=== PATIENT | female | born 1975 | race Caucasian/White ===

== ENCOUNTER 2020-04-01 10:09 | Outpatient (CLI) | payer BC, SELFPAY ==
--- NOTE | ~2020-04-01 | MR_ITS ---
EXAMINATION: MR lumbar spine wo con DATE: 04/01/2020 10:55 INDICATION: Low back pain. TECHNIQUE: Magnetic resonance imaging (MRI) of the lumbar spine was performed without intravenous con trast. Sequences included sagittal T2-weighted FSE, sagittal T2-weighted FS FSE, sagittal T1-weighted FSE, and axial T2-weighted FSE. COMPARISON: None FINDINGS: Bone alignment is normal. Vertebral body heights are normal. There is mildly decreased disc height at L4-L5. The distal spinal cord signal intensity is normal. The conus medullaris is at L1. T he following disc levels are specifically discussed: L1-L2: The disc does not extend beyond the endplate margin. There is mild bilateral facet joint osteo arthritis. There is no neural foraminal stenosis. There is no central canal stenosis. L2-L3: The disc does not extend beyond the endplate margin. There is mild bilateral facet joint osteo arthritis. There is no neural foraminal stenosis. There is no central canal stenosis. L3-L4: The disc is bulging. There is mild bilateral facet joint osteoarthritis. There is mild bilater al neural foraminal stenosis. There is mild central canal stenosis. L4-L5: The disc is bulging and has an annular fissure. There is severe bilateral facet joint osteoart hritis. There is moderate bilateral neural foraminal stenosis. There is moderate central canal stenos is. L5-S1: The disc is bulging. There is moderate bilateral facet joint osteoarthritis. There is mild germain ateral neural foraminal stenosis. There is mild central canal stenosis. IMPRESSION: 1. Moderate lower lumbar spondylosis. Reviewed, dictated and finalized at location A.
== END 2020-04-01 10:10 | disposition home or self-care (01) ==
PROVIDERS: Visit Provider Nurse Practitioner Family
DX: M54.12 Radiculopathy, cervical region (principal); M47.896 Other spondylosis, lumbar region
CPT/HCPCS: 72148

== ENCOUNTER 2020-08-25 13:49 | Outpatient (CLI) | payer BC, SELFPAY ==
--- NOTE | ~2020-08-25 | XR_ITS ---
XR lumbar spine 2-3V 08/25/2020 14:06 Indication: Lumbar fusion. Procedure: 2 views lumbar spine Comparison: 06/18/2014 Findings: Status post fusion of L4-5. Pedicle screws appear intact. There is a prosthetic disc device in expected position. No acute fracture or traumatic malalignment. Normal lumbar alignment. There is bone graft material lateral to L4 and L5. Impression: 1: Anatomic alignment of the lumbar spine status post spinal fusion. Fusion hardware appears to be in tact. Reviewed, dictated and finalized at location B. Impression: 1: Anatomic alignment of the lumbar spine status post spinal fusion. Fusion gregorio dware appears to be intact.
== END 2020-08-25 13:50 | disposition home or self-care (01) ==
PROVIDERS: Visit Provider Neurological Surgery
DX: Z98.1 Arthrodesis status (principal)
CPT/HCPCS: 72100

== ENCOUNTER 2020-09-26 12:02 | Outpatient (CLI) | payer BC, SELFPAY ==
--- NOTE | ~2020-09-26 | XR_ITS ---
XR lumbar spine 2-3V DATE: 09/26/2020 12:26 INDICATION: Spondylolisthesis. Prior surgery. TECHNIQUE: AP, lateral, coned lateral lumbosacral views COMPARISON: 08/25/2020 lumbar spine FINDINGS: Status post L4 laminectomy and posterior and interbody spinal fusion at L4-5. The hardware appears intact without interval fracture or displacement. No fracture or bone destruction is detected. Lumbar lordosis interspaces appear well preserved. There is mild degenerative spurring of the lower thoracic spine. The sacroiliac joints are intact. IMPRESSION: Posterior and interbody spinal fusion at L4-5 No significant change since 08/25/2020 Reviewed, dictated and finalized at location B. ENT PRODUCER
== END 2020-09-26 12:03 | disposition home or self-care (01) ==
LOC: ANHIMG 12:08
PROVIDERS: PCP Family Medicine; Visit Provider Neurological Surgery
DX: M43.16 Spondylolisthesis, lumbar region (principal); Z98.1 Arthrodesis status
CPT/HCPCS: 72100

== ENCOUNTER 2022-06-17 13:53 | Emergency (ER) | payer BC, SELFPAY ==
[2022-06-17] VITALS (11 sets, daily range): BP systolic 128–164; BP diastolic 64–104; PULSE 69–97; RESP 12–20; TEMP 36.4; O2SAT 95–100
--- NOTE | ~2022-06-17 | XR_ITS ---
EXAMINATION: XR chest 2V 06/17/2022 14:55 INDICATION: Cough, fever. Hypertension. PROCEDURE: 2 view chest COMPARISON: 07/13/2014 FINDINGS: The lungs are clear. The cardiomediastinal silhouette is within normal limits. There are no pleural effusions. There is no pneumothorax suspected. IMPRESSION: 1: NO ACUTE CARDIOPULMONARY DISEASE. Reviewed, dictated and finalized at location A.
--- NOTE | 2022-06-17 13:56 | ECG_ITS ---
Measurements Intervals [place] Rate: 99 P: 51 DC: 136 QRS: 30 QRSD: 98 T: 41 QT: 343 QTc: 442 Interpretive Statements SINUS RHYTHM NORMAL EKG NO PREVIOUS ECG AVAILABLE FOR COMPARISON Electronically Signed On 06-17-2022 18:34:36 CDT by Maria Esther Alexander M.D.
--- NOTE | 2022-06-17 14:05 | ED.GENADULT ---
HPI - General Adult General Chief complaint: Chest Pain Stated complaint: chest pain Time Seen by Provider: 06/17/22 14:01 History of Present Illness HPI narrative: This is a 46-year-old female presenting ED with a chief complaint of chest pain. The patient has been sick since last Tuesday. Her symptoms include fatigue, muscle aches, cough. She has recently developed chest discomfort across the top of her chest. She describes as achy pain that is 8/10 intensity and getting worse. She has never experienced pain like this before. It is worse with deep breaths. Deep breaths cause coughing. It is associated with cough, intermittent fever chills, and shortness of breath. Patient denies nausea, vomiting, diarrhea, urinary symptoms. Patient called her primary care physician on Tuesday and was prescribed a course of prednisone and doxycycline. She has been taking as directed and has not improved. Patient has no history of blood clots, recent surgeries, history of cancer or lower extremity edema. Patient's vaccinations COVID-19. She has no sick contacts at home. Related Data Home Medications Medication Instructions Recorded Confirmed hydrochlorothiazide 25 mg tablet mg 06/17/22 hydroxyzine HCl 50 mg tablet mg 06/17/22 lamotrigine 100 mg tablet mg 06/17/22 levothyroxine 50 mcg tablet mcg 06/17/22 (Euthyrox) lithium carbonate 300 mg mg PO 06/17/22 tablet,extended release losartan 100 mg tablet mg 06/17/22 meloxicam 15 mg tablet mg 06/17/22 pantoprazole 40 mg tablet,delayed mg PO 06/17/22 release phentermine 37.5 mg tablet mg 06/17/22 prednisone 20 mg tablet mg 06/17/22 Allergies Allergy/AdvReac Type Severity Reaction Status Date / Time Sulfa (Sulfonamide Allergy Mild Rash Verified 06/17/22 14:08 Antibiotics) morphine Allergy Unknown Unknown Verified 06/17/22 14:08 shellfish derived Allergy Unknown Unknown Verified 06/17/22 14:08 SHELLFISH Allergy Mild Unknown Uncoded 06/17/22 14:08 Shrimp Allergy Mild Unknown Uncoded 06/17/22 14:08 Review of Systems Review of Systems: CONSTITUTIONAL: Denies night sweats. EYES: No eye pain ENT: Denies rhinorrhea CARDIOVASCULAR: Denies palpitations RESPIRATORY: Denies hemoptysis GASTROINTESTINAL: Denies hematemesis GENITOURINARY: Denies hematuria. SKIN: Denies rash MUSCULOSKELETAL: Denies myalgia. NEUROLOGIC: denies weakness PSYCHIATRIC: Denies delusions [facility] Past Medical History Medical History (Updated 06/17/22 @ 16:39 by Baltazar Oseguera MD) Arthritis Diabetes Fusion of lumbar spine Hypertension Hypothyroid Ulnar nerve impingement Surgical History Surgical History History of carpal tunnel release Family History Family History Mother Family history of elevated blood lipids Father Family history of elevated blood lipids Social History Social History Smoking status: Heavy tobacco smoker Alcohol intake: never Exam Narrative: APPEARANCE: No apparent distress. Head atraumatic. EYES: PERRLA/EOMI, NOSE: Normal no drainage NECK: Supple, Trachea midline RESPIRATORY: CTAB, No increased work of breathing. patient is speaking in full sentences. No wheezing or rhonchi. CARDIOVASCULAR: S1S2 appreciated ABDOMINAL: Soft, nontender, nondistended, MUSCULOSKELETAl: No obvious deformities NEURO: Alert. Moving 4/4 extremities SKIN:: Warm, dry. Normal color PSYCHIATRIC: Normal affect Course Vital Signs Vital signs: Vital Signs Temperature 97.6 F 06/17/22 13:57 Pulse Rate 97 06/17/22 13:57 Respiratory Rate 16 06/17/22 13:57 Blood Pressure 164/104 H 06/17/22 13:57 Pulse Oximetry 100 06/17/22 13:57 Oxygen Delivery Room Air 06/17/22 13:57 Temperature 97.6 F 06/17/22 13:57 Pulse Rate 77 06/17/22 16:15 Respiratory Rate 16 06/17/22 16:15 Blood
[2022-06-17 14:08] LABS: Basophils Absolute Auto 0.1 K/mm3 (0.0-0.1); Basophils Percent Auto 0.8 % (0.2-1.2); Eosinophils Absolute Auto 0.2 K/mm3 (0-0.3); Eosinophils Percent Auto 2.2 % (0-4.4); Hematocrit 41.4 % (37.0-47.0); Hemoglobin 13.8 g/dL (12.0-15.0); Immature Granulocyte Absolute 0.07 K/mm3 (0.00-0.031); Lymphocytes Absolute Auto 1.76 K/mm3 (0.9-3.2); Lymphocytes Percent Auto 23.9 % (18.3-44.2); Mean Corpuscular HGB Conc 33.3 g/dl (32-36); Mean Corpuscular Hemoglobin 31.8 pg (26-34); Mean Corpuscular Volume 95.4 fl (80-100); Mean Platelet Volume 9.3 fl (7.4-10.4); Monocytes Absolute Auto 0.2 K/mm3 (0.1-0.6); Monocytes Percent Auto 2.2 % (2.6-8.5); Neutrophils Absolute Auto 5.1 K/mm3 (1.3-6.7); Neutrophils Percent Auto 69.9 % (45.5-73.1); Platelet Count Result 250 k/mm3 (150-375); Red Blood Count 4.34 M/mm3 (4.2-5.4); White Blood Count 7.4 K/mm3 (4.5-10.0)
[2022-06-17] MEDS: guaiFENesin/DEXTROMETHORPHAN 10 ML UDC PO (14:43)
[2022-06-17 15:20] LABS: SARS-CoV-2 RNA PCR Negative
[2022-06-17 16:18] LABS: Alanine Aminotransferase 32 U/L (6-35); Alkaline Phosphatase 66 U/L (38-126); Anion Gap 11 mmol/L (8-16); Aspartate Amino Transferase 19 U/L (14-36); Bilirubin,Total 0.2 mg/dL (0.2-1.3); Blood Urea Nitrogen 20 mg/dL (7-17); Calcium 8.8 mg/dL (8.4-10.2); Carbon Dioxide 19 mmol/L (22-30); Chloride 107 mmol/L (98-107); Estimated CRCL calculation 81 ml/min; Estimated Glomerular Filt Rate > 60; Glucose 185 mg/dL (65-110); Potassium 3.9 mmol/L (3.4-5.0); Sodium 137 mmol/L (137-145)
[2022-06-17 16:29] LABS: Troponin I < 0.012 ng/mL (0.000-0.034)
[2022-06-17] MEDS: KETOROLAC 15 MG/ML VIAL (*BKC) IV PUSH (16:37)
== END 2022-06-17 16:53 | disposition home or self-care (01) ==
PROVIDERS: Emergency Provider Emergency Medicine; PCP Family Medicine
DX: J20.9 Acute bronchitis, unspecified (principal); Z20.822 Contact with and (suspected) exposure to COVID-19; M19.90 Unspecified osteoarthritis, unspecified site; E11.9 Type 2 diabetes mellitus without complications; I10 Essential (primary) hypertension; E03.9 Hypothyroidism, unspecified
CPT/HCPCS: 36415; 71046; 80053; 84484; 85025; 93005; 96374; 99284; A9270; C9803; J1885; U0003; U0005

== ENCOUNTER 2022-06-29 14:13 | Outpatient (CLI) | payer BC, SELFPAY ==
--- NOTE | ~2022-06-29 | CT_ITS ---
EXAMINATION: CT diagnostic chest wo con DATE: 06/29/2022 14:43 INDICATION: Cough TECHNIQUE: Computed tomography (CT) of the chest was performed without intravenous contrast. The dose -length product (DLP) was 374.77 mGy-cm. Automated exposure control and iterative reconstruction tech nique were employed. COMPARISON: None FINDINGS: The lungs are free of acute opacities. No pleural effusion or pneumothorax. No pathological ly enlarged thoracic lymph nodes are identified. The heart size is normal. There is moderate thoracic spondylosis. IMPRESSION: 1. No CT correlate for the patient's symptoms. Reviewed, dictated and finalized at location B.
== END 2022-06-29 14:14 | disposition home or self-care (01) ==
LOC: ANHIMG 14:15
PROVIDERS: PCP Family Medicine; Visit Provider Family Medicine
DX: R05.9 Cough, unspecified (principal)
CPT/HCPCS: 71250

== ENCOUNTER 2022-10-03 10:54 | Emergency (ER) | payer BC, MEDICAID, SELFPAY ==
[2022-10-03 11:55] VITALS: BP 133/76; PULSE 86; RESP 18; TEMP 36.8; O2SAT 99
--- NOTE | 2022-10-03 12:35 | ED.EYEPROB ---
HPI - Eye Problem General Chief complaint: Eye Problems Stated complaint: Right Eye Irritation Time Seen by Provider: 10/03/22 12:36 Source: patient Mode of arrival: ambulatory Limitations: no limitations History of Present Illness HPI Narrative: 47 year old female presented for complaint of right eye irritation for about 2 days. She states at the onset it felt painful like something was in her eye, however she denies any foreign body. She endorses it has been itchy, irritated, and draining. She endorses crust to the eye this morning. She has a history of pinkeye and states it feels similar. She denies vision changes, photophobia, headaches or dizziness. Denies sick contacts. MD chief complaint: eye pain Related Data Home Medications Medication Instructions Recorded Confirmed hydrochlorothiazide 25 mg tablet mg 06/17/22 hydroxyzine HCl 50 mg tablet mg 06/17/22 lamotrigine 100 mg tablet mg 06/17/22 levothyroxine 50 mcg tablet mcg 06/17/22 (Euthyrox) lithium carbonate 300 mg mg PO 06/17/22 tablet,extended release losartan 100 mg tablet mg 06/17/22 meloxicam 15 mg tablet mg 06/17/22 pantoprazole 40 mg tablet,delayed mg PO 06/17/22 release phentermine 37.5 mg tablet mg 06/17/22 prednisone 20 mg tablet mg 06/17/22 Allergies Allergy/AdvReac Type Severity Reaction Status Date / Time Sulfa (Sulfonamide Allergy Mild Rash Verified 10/03/22 12:09 Antibiotics) morphine Allergy Unknown Unknown Verified 10/03/22 12:09 shellfish derived Allergy Unknown Unknown Verified 10/03/22 12:09 SHELLFISH Allergy Mild Unknown Uncoded 10/03/22 12:09 Shrimp Allergy Mild Unknown Uncoded 10/03/22 12:09 Review of Systems Review of Systems: CONSTITUTIONAL: Denies body aches, fever, chills EYES:Endorses swelling, redness and pain to right eye ENT: Denies rhinorrhea, congestion, sore throat, or otalgia. CARDIOVASCULAR: Denies chest pain, palpitations RESPIRATORY: Denies cough or dyspnea. GASTROINTESTINAL: Denies abdominal pain, nausea, vomiting, or diarrhea. SKIN: Denies rash, itching, or wounds. MUSCULOSKELETAL: Denies back pain, joint pain, or myalgia. NEUROLOGIC: Denies headache, numbness, tingling, or weakness. All systems reviewed & are unremarkable except as noted in HPI and below PMFSH Past Medical History Medical History Arthritis Diabetes Fusion of lumbar spine Hypertension Hypothyroid Ulnar nerve impingement Surgical History Surgical History History of carpal tunnel release Family History Family History Mother Family history of elevated blood lipids Father Family history of elevated blood lipids Social History Social History Smoking status: Heavy tobacco smoker Alcohol intake: never Comments At time of signature, I have reviewed and agree with nursing past medical, surgical, social and family history unless otherwise noted. Please see nursing chart for further information. There is no relevant family history pertinent to the presenting complaint Exam Narrative: GENERAL: Well-appearing HEAD: Normocephalic, atraumatic. EYES: right conjunctival injection, mild eye lid swelling and clear drainage. PERRLA EOMI. Lid eversion showed no FB. ENT: Mucous membranes pink and moist. No rhinorrhea. TMs normal bilaterally. Throat normal. Uvula midline. CHEST: Clear to auscultation. HEART: Regular rate and rhythm. ABDOMEN: Soft, nontender, nondistended SKIN: Warm, dry, no rash. Normal skin turgor. NEURO: No focal deficits. Alert and oriented x3 Course Course Emergency Course: Patient is aware of diagnosis, understands and agrees to treatment plan. Anticipatory guidance given. Patient agrees to follow-up as directed and is aware of reasons to seek care at the
== END 2022-10-03 12:50 | disposition home or self-care (01) ==
PROVIDERS: Emergency Provider Nurse Practitioner Family; PCP Family Medicine
DX: H10.9 Unspecified conjunctivitis (principal); F17.290 Nicotine dependence, other tobacco product, uncomplicated; M19.90 Unspecified osteoarthritis, unspecified site; E11.9 Type 2 diabetes mellitus without complications; I10 Essential (primary) hypertension; E03.9 Hypothyroidism, unspecified
CPT/HCPCS: 99213; A9270; G0463

== ENCOUNTER 2024-06-18 10:35 | Outpatient (CLI) | payer BC, MEDICAID, SELFPAY ==
[2024-06-19 21:52] LABS: FSH 91.6 mIU/mL
[2024-06-26 05:14] LABS: Estradiol, Ultrasensitive 6 pg/mL
== END 2024-06-18 10:36 | disposition home or self-care (01) ==
LOC: ANHLAB 10:37
PROVIDERS: Visit Provider Student in an Organized Health Care Education/Training Program
DX: N95.1 Menopausal and female climacteric states (principal)
CPT/HCPCS: 36415; 82670; 83001; 84443

== ENCOUNTER 2024-09-14 11:41 | Emergency (ER) | payer BC, SELFPAY ==
--- NOTE | ~2024-09-14 | CT_ITS ---
EXAMINATION: CT lumbar spine wo con DATE: 09/14/2024 13:46 INDICATION: Low back pain. TECHNIQUE: Computed tomography (CT) of the lumbar spine was performed without intravenous contrast. A utomated exposure control and iterative reconstruction technique were employed. The dose-length produ ct was 771.46 mGy-cm. COMPARISON: Lumbar spine radiographs 09/26/2020, MRI 04/01/2020 FINDINGS: There is 7 degrees levocurvature of lumbar spine. There are changes of anterior and posteri or fusion procedures at L4-L5 with interbody device and pedicle screws. Vertebral body heights are no rmal. There is mildly decreased disc height at L3-L4. The following disc levels are specifically disc ussed: L1-L2: The disc does not extend beyond the endplate margin. There is moderate right and severe left f acet joint osteoarthritis. There is no neural foraminal stenosis. There is no central canal stenosis. L2-L3: The disc is bulging. There is mild bilateral facet joint osteoarthritis. There is mild bilater al neural foraminal stenosis. There is mild central canal stenosis. L3-L4: The disc is bulging. There is moderate bilateral facet joint osteoarthritis. There is mild rig ht and moderate left neural foraminal stenosis. There is moderate central canal stenosis. L4-L5: There is moderate bilateral facet joint hypertrophy. There is mild bilateral neural foraminal stenosis. There is no central canal stenosis. There is posterior decompression. L5-S1: The disc is bulging. There is severe bilateral facet joint osteoarthritis. There is mild bilat eral neural foraminal stenosis. There is mild central canal stenosis. IMPRESSION: 1. Moderate left neural foraminal stenosis at L3-L4. Otherwise mild lumbar spondylosis. 2. Anterior and posterior fusion procedures at L4-L5. Reviewed, dictated and finalized at location A. GER PRIVATE IMPRESSION: 1. Moderate left neural foraminal stenosis at L3-L4. Otherwise mild lumbar spon dylosis. 2. Anterior and posterior fusion procedures at L4-L5.
[2024-09-14 11:50] VITALS: BP 132/93; PULSE 81; RESP 20; TEMP 36.2; O2SAT 95
--- NOTE | 2024-09-14 13:12 | ED_ITS ---
HPI - Back Pain/Injury General Chief Complaint: Back Pain/Injury Stated Complaint: back pain Time Seen by Provider: 09/14/24 12:53 Source: patient Mode of arrival: ambulatory Limitations: no limitations History of Present Illness HPI Narrative: Patient with history of lumbar fusion 4 years ago presenting for low back pain. Had a adjustment with a chiropractor 2 months ago and since then has been having some low back pain which radiates into both of her legs occasionally. She says she gets shooting pain in the back of her legs into her feet. No paresthesias however. No difficulty urinating or incontinence. No changes in bowel habits. No saddle anesthesia Related Data Home Medications Medication Instructions Recorded Confirmed hydrochlorothiazide 25 mg tablet mg 06/17/22 07/30/24 levothyroxine 50 mcg tablet mcg 06/17/22 07/30/24 (Euthyrox) losartan 100 mg tablet mg 06/17/22 07/30/24 meloxicam 15 mg tablet mg 06/17/22 07/30/24 lamotrigine 100 mg tablet 150 mg PO 06/18/24 07/30/24 lithium carbonate 300 mg mg PO BID 06/18/24 07/30/24 tablet,extended release prednisolone acetate 1 % eye drp EACH EYE 06/18/24 07/30/24 drops,suspension Allergies Allergy/AdvReac Type Severity Reaction Status Date / Time Sulfa (Sulfonamide Allergy Mild Rash Verified 09/14/24 11:57 Antibiotics) morphine Allergy Unknown Unknown Verified 09/14/24 11:57 SHELLFISH Allergy Mild Unknown Uncoded 07/30/24 14:49 Shrimp Allergy Mild Unknown Uncoded 07/30/24 14:49 Review of Systems Review of Systems: All systems reviewed & are unremarkable except as noted in HPI and below PMFSH Past Medical History Medical History Arthritis Diabetes Fusion of lumbar spine Hypertension Hypothyroid Ulnar nerve impingement Surgical History Surgical History History of carpal tunnel release History of hysterectomy Family History Family History Mother Family history of elevated blood lipids Father Family history of elevated blood lipids Social History Social History Smoking status: Heavy tobacco smoker Alcohol intake: never Substance use: never Do You Feel Safe in your Home?: Yes Lack of Transportation: No Lack of Food: Never True Current Housing: I Have Housing Concerned About Future Housing: No Difficulty Paying Gas/Electric Bills: No Currently Unemployed: No Occupation/Education: occupation Gender identity (if verbalized by the patient): Female Exam Narrative: Constitutional: Generally well appearing, no acute distress Head: Atraumatic, no deformities. Eyes: Pupils equal, round, and reactive to light. Neck: Supple, no tracheal deviation, no JVD. ENMT: Mucous membranes moist Cardiovascular: S1, S2 auscultated. No murmurs, rubs, or gallops. No S3/S4. Normal Distal pulses. No peripheral edema. Respiratory: Lung sounds equal. No wheezes, rales, or rhonchi. Gastrointestinal: Abdomen was soft and non-tender. Non-distended. No rebound or guarding. Genitourinary: Deferred Musculoskeletal: Normal muscle tone and bulk. No obvious deformities or t enderness over extremities. Mild tenderness in the mid lumbar spine region with no step-off deformity. Skin: No rashes. Neurological: Strength 5/5 in extremities. Cranial nerves I-XII grossly intact. Distal sensation intact. Mental Status: Awake, alert and oriented x3. Follows commands Course Vital Signs Vital signs: Vital Signs Temperature 36.2 C L 09/14/24 11:50 Pulse Rate 81 09/14/24 11:50 Respiratory Rate 20 09/14/24 11:50 Blood Pressure 132/93 H 09/14/24 11:50 Pulse Oximetry 95 09/14/24 11:50 Oxygen Delivery Room Air 09/14/24 11:50 Temperature 36.2 C L 09/14/24 11:50 Pulse Rate 81 09/14/24 11:50 Respiratory Rate 20 09/14/24 11:50 Blood Pressure 132/93 H 09/14/24 11:50 Pulse Oximetry 95 09/14/24 11:50 Oxygen Delivery Room Air 09/14/24 11:50 MDM - Back Pain/Injury MDM Narrative Medical decision making narrative: Well-appearing 48-year-old here for low back pain. Ongoing for several months now. Was the area so decided to be evaluated because she [place] and her surgeon without getting further imaging done. Exam shows neurologically intact. No red flag findings for acute spinal cord impingement. Obtaining CT lumbar spine to further evaluate and given pain medicine Imaging shows chronic degeneration and also some neural foraminal stenosis likely causing her pain. Still neurovascularly intact. Discussed follow-up with her neurosurgeon. She will do so. Given naproxen prescription. Pt feeling improved and would like to go home at this point. Return precautions were given to the patient include any new or worsening symptoms or development of and not limited to any chest pain, shortness of breath, lightheadedness, abdominal pain, fevers, chills. Patient understands and agrees. They are to follow-up with her PCP. All questions were answered. I reviewed the patient's vital signs, history, allergies, and labs and imaging workup. Lab Data Labs: Lab Results 09/14/24 Range/Units 13:58 Urine Test Negative Discharge Plan Discharge Clinical Impression: Lumbar radiculopathy Patient Disposition: Home, Self-Care Condition: Stable Instructions: Antibiotic Form, Lumbar Radiculopathy (ED) Prescriptions: New naproxen 500 mg tablet 500 mg PO BID PRN (Reason: pain) Qty: 20 0RF No Action prednisolone acetate 1 % drops,suspension EACH EYE estradiol 1 mg tablet 1 mg PO DAILY Qty: 90 3RF meloxicam 15 mg tablet levothyroxine [Euthyrox] 50 mcg tablet hydrochlorothiazide 25 mg tablet losartan 100 mg tablet lamotrigine 100 mg tablet 150 mg PO lithium carbonate 300 mg tablet extended release PO BID Follow-up/Referrals: Pratibha Nnuez DO [Physician] - Time of Disposition: 14:38
[2024-09-14] MEDS: KETOROLAC 30 MG/ML VIAL (*BKC) IM (13:26)
[2024-09-14] MEDS: HYDROcodone/acetaminophen (*CRX) 5-325 MG TABLET 1 TAB PO (13:26)
[2024-09-14 14:13] LABS: Pregnancy On Board Control Positive; Urine Pregnancy Test Negative
[2024-09-14 14:49] VITALS: BP 129/76; PULSE 70; RESP 20; TEMP 35.9; O2SAT 98
== END 2024-09-14 14:51 | disposition home or self-care (01) ==
PROVIDERS: Emergency Provider Emergency Medicine
DX: M54.16 Radiculopathy, lumbar region (principal); E11.9 Type 2 diabetes mellitus without complications; I10 Essential (primary) hypertension; E03.9 Hypothyroidism, unspecified; F17.200 Nicotine dependence, unspecified, uncomplicated
CPT/HCPCS: 72131; 81025; 96372; 99283; A9270; J1885

== ENCOUNTER 2024-11-05 15:38 | Outpatient (CLI) | payer BC, SELFPAY ==
--- NOTE | ~2024-11-05 | MR_ITS ---
MRI of the lumbar spine Clinical History: Back pain Technique: Axial T2-weighted images, and sagittal T1-weighted, T2-weighted, and STIR images were acqu ired. Findings: No acute fracture or subluxation identified. There is posterior and interbody fusion from L 4 to L5, with bilateral rods and transpedicular screws present, as well as interbody fusion device. T here is been prior laminectomy at L4 and L5. No suspicious bone marrow signal abnormality seen. At L1-L2, there is no disc bulge or herniation. There is moderate to advanced facet hypertrophy. No s nito canal stenosis or neural foraminal narrowing. At L2-L3, there is no disc bulge or herniation. There is advanced facet hypertrophy. No spinal canal stenosis or neural foraminal narrowing. L3-L4, there is mild to moderate degenerative distended. Disc bulge and severe facet arthropathy resu lt in severe spinal canal stenosis/thecal sac compression. There is minimal left neural foraminal henri rowing. Right neural foramen preserved. At L4-L5, there is no disc bulge or herniation. No spinal canal stenosis or definite neural foraminal narrowing. At L5-S1, there is advanced facet arthropathy but, no disc bulge or herniation. No spinal canal steno sis. Probable mild to moderate bilateral neural foraminal narrowing, right worse than left. Paravertebral soft tissues are unremarkable aside from postoperative change. Impression: Advanced degenerative spondylosis at L3-L4, with severe spinal canal stenosis/thecal sac compression, as detailed above. Postoperative change from L4-L5, as above. Reviewed, dictated and finalized at location . OL PSYCHOLOGIST Impression: Advanced degenerative spondylosis at L3-L4, with severe spinal canal stenosis/t hecal sac compression, as detailed above. Postoperative change from L4-L5, as above.
== END 2024-11-05 15:39 | disposition home or self-care (01) ==
DX: M47.816 Spondylosis without myelopathy or radiculopathy, lumbar region (principal); M43.26 Fusion of spine, lumbar region
CPT/HCPCS: 72148

== ENCOUNTER 2025-01-26 14:29 | Emergency (ER) | payer BC, SELFPAY ==
--- NOTE | ~2025-01-26 | XR_ITS ---
XR chest 2V DATE: 01/26/2025 15:33 INDICATION: Chest pain TECHNIQUE: 2 views COMPARISON: 06/17/2022 2 view chest FINDINGS: Relatively low lung volumes with mild atelectasis at the lung bases. Heart size appears normal. No hilar or mediastinal enlargement. No pleural effusion or pneumothorax o r pulmonary vascular congestion. Bilateral lumbar spine hardware. IMPRESSION: Relatively low lung volumes compared to 06/17/2022 with mild bibasilar atelectasis Reviewed, dictated and finalized at location A. IMPRESSION: Relatively low lung volumes compared to 06/17/2022 with mild bibasil ar atelectasis
--- OUTSIDE RECORDS SUMMARY | 2025-01-26 14:30 | XMS_ITS | Clinical Summary ---
Author Organization [employer] [id number] [facility] Address [address] [place] [address] Care Team Providers Care Dental Specialist Name Role Phone Mariluz Alva MD Primary Care Provider + Allergies Active Allergy Reactions Criticality Noted Date Comments Fish Derived Hives,Other (See Comments) High 08/01/2020 Stomach problems and tongue felt funny Morphine Hives,Itching High 07/02/2020 HR and BP was very low, possibly due to morphine Shellfish Containing Products Swelling High 07/02/2020 Shellfish Derived Swelling Low 08/02/2022 Sulfa (Sulfonamide Antibiotics) Itching High 08/01/2020 Eyes swell shut; BUT Sulfa can take orally, just not as eye drops. 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 Acti ve tiZANidine (ZANAFLEX) 4 mg Tablet 07/22/20 22 Active pantoprazole (PROTONIX) 40 mg Tablet, Delayed Release (E.C.) TAKE 1 TABLET BY MOUTH ONCE DAILY 30 MINUTES BEFORE BREAKFAST FOR ACID REFLUX 07/08/20 22 Active meloxicam (MOBIC) 15 mg tablet meloxicam 15 mg tablet Active LOSARTAN-HYDR OCHLOROTHIAZI DE ORAL Active lithium carbonate (LITHOBID) 300 mg Extended Release tablet 06/21/20 22 Active lamoTRIgine (LaMICtal) 100 mg tablet lamotrigine 100 mg tablet TAKE 1 TABLET BY MOUTH ONCE DAILY Active hydrOXYzine HCL (ATARAX) 50 mg tablet hydroxyzine HCl 50 mg tablet Active hydroCHLOROth iazide 25 mg tablet hydrochlorothiazide 25 mg tablet Active famotidine (PEPCID) 40 mg tablet famotidine 40 mg tablet Active doxycycline hyclate (VIBRAMYCIN) 100 mg tablet 06/14/20 Active Active Problems Problem Noted Date Diagnosed Date Chronic midline low back pain with left-sided sc iatica 08/02/2022 Pain in thoracic spine 07/29/2021 S/P lumbar fusion 08/26/2020 S/P lumbar spinal fusion 08/07/2020 Drug-induced hypotension 08/07/2020 Acquired hypothyroidism 08/07/2020 Spondylolisthesis at L4-L5 level 07/02/2020 Neurogenic claudication due to lumbar spinal chad nosis 07/02/2020 Family History Relation Name Status Comments Father Alive Mother Alive Social History Tobacco Use Types Packs/Day Years Used Date Smoking Tobacco: Former Cigarettes 1.5 20 0 07/21/2000 - 07/21/2020 Smokeless Tobacco: Never Tobacco Cessation:Counseling Given: No Alcohol Use Standard Drinks/Week Comments Not Currently 0 (1 standard drink = 0.6 oz pur e alcohol) Comments No Sex and Gender Information Value Date Recorded Sex Assigned at Not on file Legal Sex Female 2:22 PM CDT Gender Identity Not on file Sexual Orientation Not on file Last Filed Vital Signs Vital Sign Reading Time Taken Comments Blood Pressure 122/61 08/08/2020 2:00 PM CDT Pulse 75 08/02/2022 9:34 AM CDT Temperature 36.4 C (97.6 F) 08/26/2020 9:26 AM CDT Respiratory Rate 16 08/08/2020 7:46 AM CDT Oxygen Saturation 98% 08/02/2022 9:34 AM CDT Inhaled Oxygen Concentration - - Weight 100.9 kg (222 lb 6.4 oz) 08/02/2022 9:34 AM CDT Height 162.6 cm (5' 4 ) 09/30/2020 11:3 7 AM [employer] Body Mass Index 38.17 09/30/2020 11:37 AM [employer] Plan of Treatment Upcoming Encounters Date Type Department Care Team (Late st Contact Info) Description 02/18/2025 2:00 PM CDT Office Visit [facility] Neurosurgery [address] [facility] [address] [place] [address] Vidal Carranza MD [address] [facility] [address] [place] [id number] Health Maintenance Due Date Last Done Comments HEPATITIS B VACCINES (1 of 3 - 19+ 3-dose series) 1995 PAP SMEAR 2006 BREAST CANCER SCREENING 2016 COLORECTAL SCREENING 2021 Colorectal Cancer Screening 2021 FIT-DNA Q 3 years 2021 FIT/FOBT Q 1 year 2021 Flex Sig/CT Colonography Q 5 years 2021 INFLUENZA VACCINE (#1) 2024 , 08/21/2015, 09/05/2013 Preventative Visit- Commercial 11/07/2024 DTAP/TDAP/TD VACCINES (2 - T d or Tdap) 01/27/2027 01/27/2017 Medical Devices Implanted Type Area Ssrs Developer Device Identifier Shelf Expiration Date Model / Serial / Lot Rosalio Cdh Solera Ccm [id number] Capped [id number] - Sna Implanted:Qty: 1 on 08/06/2020 by Soy Pierce MD at [facility] Rosalio N/A: Spine Lumbar [employer] [id number] / NA / NA Description:load # [id number] date 08/01/2020 Rosalio Cdh Solera Ccm [id number] Capped [id number] - Sna Implanted:Qty: 1 on 08/06/2020 by Soy Pierce MD at [facility] Rosalio N/A: Spine Lumbar [employer] [id number] / NA / NA Description:load #[id number] date 08/01/2020 BR[employer]IE-REQ#[id number] Set Screw Solera Perc 4.75mm [id number] - Sna Implanted:Qty: 4 on 08/06/2020 by Soy Pierce MD at [facility] Screw N/A: Spine Lumbar [employer] [id number] / NA / NA Description:load # [id number] date 08/01/2020 Screw Solera Kit Ma 6.5x35mm 4.75 Ext Tab [id number] - Sna Implanted:Qty: 2 on 08/06/2020 by Soy Pierce MD at [facility] N/A: Spine Lumbar [employer] [id number] / NA / NA Description:load # [id number] date 08/01/2020 Screw Solera Kit Ma 5.5x40mm 4.75 Ext Tab [id number] - Sna Implanted:Qty: 1 on 08/06/2020 by Soy Pierce MD at [facility] N/A: Spine Lumbar [employer] [id number] / NA / NA Description:load # [id number] date 08/01/2020 Screw Solera Kit Ma 5.5x35mm 4.75 Ext Tab [id number] - Sna Implanted:Qty: 1 on 08/06/2020 by Soy Pierce MD at [facility] N/A: Spine Lumbar [employer] [id number] / NA / NA Description:load # [id number] date 08/01/2020 Spacer Rise 10x26 8-15mm 10 193.122 - Sna Implanted:Qty: 1 on 08/06/2020 by Soy Pierce MD at [facility] Spacer N/A: Spine Lumbar [employer] 193.122 / NA / NA Description:load # [id number] date 08/05/2020 BRODIE-REQ#[id number] Allograft Magnifuse Pc [id number] - [id number] Implanted:Qty: 1 on 08/06/2020 by Soy Pierce MD at [facility] Tissue N/A: Spine Lumbar [employer] 04/22/2022 [id number] / [id number] / NA Description:Requisition: [id number] Explanted Type Area Ssrs Developer Device Identifier Shelf Expiration Date Model / Serial / Lot Hemostatic Surgiflo 8ml W/Thrombin 2994 - Sna Explanted:Qty: 2 on 08/06/2020 by Soy Pierce MD at [facility] Hemostatic N/A: Spine Lumbar [employer] 07/07/2021 [id number] / NA / [id number] Insurance BCBS BLUE ACCESS/TRUE BLUE PPO MEDICA[place] RX [employer] RX Member Subscriber Plan / Payer (Ef fective for All Dates) Name:LevinCary ríos Relation to Subscriber:Self Name:Cary Levin Payer ID:Not on file Group ID:[id number] Type:RX Commercial Address: [address] Advance Directives For more information, please contact: [phone] * Full Code (Latest Code Status on File) Date Activated Date Inactivated Comments 08/06/2020 1:38 PM 08/08/2020 4:36 PM * Full Code Date Activated Date Inactivated Comments 08/06/2020 7:01 AM 08/06/2020 1:37 PM Care Teams Dental Specialist Relationship Specialty Start Date End Date Mariluz Alva MD [address] [place] [address] [place] [id number] PCP - General Family Practice 06/17/20
--- OUTSIDE RECORDS SUMMARY | 2025-01-26 14:30 | XMS_ITS | Data Portability ---
Author Organization [facility] [employer], Main Office Address [address] [place] [address] Assessment No assessment recorded. Plan of Treatment Reminders Order Date Submit Date Provider Last Modified By Organization Details Last Modified Time Details Appointments None recorded. Lab lipid panel, serum 2024 025 [facility] (Lab), [address] [place], [address], 5 10:22:26 TSH + free T4, serum [address] (Lab), [address] [place], [address], 5 11:08:46 HbA1c (hemoglobi n A1c), blood [address] (Lab), [address] [place], [address], 5 11:08:46 CBC w/ auto diff [address] (Lab), [address] [place], [address], 5 11:08:45 CMP, serum or plasma [address] (Lab), [address] [place], [address], 5 11:08:46 vitamin D, 25-hydroxy , total, serum [address] (Lab), [address] [place], [address], 5 11:08:44 hepatitis C virus Ab, serum [address] (Lab), [address] [place], [address], 5 11:08:46 TSH, serum or plasma [address] (Lab), [address] [place], [address], 5 11:08:45 T4, free, serum [address] (Lab), [address] [place], [address], 5 11:08:45 vitamin B12 + folate, serum or blood [address] (Lab), [address] [place], [address], 5 11:08:45 CBC w/ auto diff 2023 024 [facility] (Lab), [address] [place], [address], 4 08:11:34 CMP, serum or plasma 2023 024 [facility] (Lab), [address] [place], [address], 4 08:11:34 lipid panel, [facility] [address] [place], [address], 5 08:10:05 lithium, serum 2023 024 [facility] (Lab), [address] [place], [address], 5 08:10:06 vitamin D, 25-hydroxy , total, serum 2023 024 [facility] (Lab), [address] [place], [address], 5 08:10:06 hepatitis C virus Ab, serum 2023 024 [facility] (Lab), [address] [place], [address], 5 08:10:06 TSH, serum or plasma 2023 024 [facility] (Lab), [address] [place], [address], 5 08:10:06 T4, free, serum 2023 024 [facility] (Lab), [address] [place], [address], 5 08:10:06 HbA1c (hemoglobi n A1c), blood 2023 024 [facility] (Lab), [address] [place], [address], 5 08:10:06 lithium, serum 2022 023 MICHAEL Not available 18:55:24 vitamin D, 25-hydroxy , total, serum 2022 023 MICHAEL Not available 3 03:23:37 CBC w/ auto diff 2022 023 MICHAEL Not available 18:50:16 BMP, serum or plasma 2022 023 MICHAEL Not available 18:55:55 TSH, serum or plasma 2022 023 MICHAEL Not available 19:39:59 vitamin B12, serum 2022 023 MICHAEL Not available 20:25:58 folate, serum 2022 023 MICHAEL Not available 20:26:04 vitamin B1 (thiamine) , blood 2022 MICHAEL Not available 18:08:46 Referral None recorded. Procedures None recorded. Surgeries None recorded. Imaging XR, lumbar spine 2022 023 [email or web address] 56 Not available 08:36:17 XR, sacrum + coccyx 2022 023 [email or web address] 56 Not available 08:36:17 Medication Orders hydroxyzin e HCl 50 mg tablet 2024 025 [facility] [address] [place], [address], 5 11:04:40 pregabalin 75 mg capsule 2024 025 [facility] [address] [place], [address], 5 11:04:50 amlodipine 5 mg tablet 2024 025 [facility]/Pharmacy #2510, [address] [place], [address], 5 11:04:43 hydrochlor othiazide 25 mg tablet 2024 025 [facility]/Pharmacy #2510, [address] [place], [address], 5 11:04:37 losartan 100 mg tablet 2024 025 [facility] [address] [place], [address], 5 11:04:40 tizanidine 4 mg tablet 2024 025 [facility] [address] [place], [address], 5 11:04:42 lamotrigin e 150 mg tablet 2024 025 [facility] [address] [place], [address], 5 11:04:42 lithium carbonate ER 300 mg tablet,ext ended release 2024 025 [facility] [address] [place], [address], 5 11:04:40 levothyrox ine 50 mcg tablet 2024 025 [facility] [address] [place] [address], [address], 5 11:04:38 tizanidine 4 mg tablet 2023 024 [facility] [address] [place], [address], 4 11:14:10 lithium carbonate ER 300 mg tablet,ext ended release 2023 024 [facility] [address] [place], [address], 4 11:14:08 meloxicam 15 mg tablet 2023 024 [facility]/Pharmacy #2510, [address] [place], [address], 4 11:14:08 losartan 100 mg tablet 2023 024 [facility]/Pharmacy #2510, [address] [place], [address], 4 11:14:09 levothyrox ine 50 mcg tablet 2023 024 [facility]/Pharmacy #2510, [address] [place], [address], 4 11:14:09 phentermin e 37.5 mg tablet 2022 023 [email or web address] [facility]25, [address] [place], [address], 15:27:45 Patient TargetsNo targets recorded. Patient Instructions Encounter Date Encounter Id Patient Instructions Last Modified By Organization Details Last Modified Time 07/31/2024 [id number] Follow up in 6 months Obtain labs Tests: Referral: Recommend: Influenza vaccine Not available 07/31/2024 11:13:56 01/22/2025 [id number] Follow up in 4 months Prescriptions sent to pharmacy Obtain labs Tests: Referral: Recommend: Tetanus vaccine Not available 01/22/2025 11:02:33 Reason for Referral None Reported. Results Created Date Observation Date Name Description Value Unit Range Abnormal Flag Note LastModifiedBy Organization Detail LastModifiedTime 05/30/2005/31/2023 HEPAT IC FUNCT ION PANEL protein, total 6.7 g/dL 6.1-8. 1 normal Not Available [facility] [address] [place], [address], 05/31/2023 18:09:30 05/30/2005/31/2023 HEPAT IC FUNCT ION PANEL albumin 4.4 g/dL 3.6-5. 1 normal Not Available [facility] [address] [place], [address], 05/31/2023 18:09:30 05/30/20 23 05/31/2023 HEPAT IC FUNCT ION PANEL globulin 2.3 g/dL_ (calc ) 1.9-3. 7 normal Not Available [address], [address], 05/31/2023 18:09:30 05/30/20 23 05/31/2023 HEPAT IC FUNCT ION PANEL albumin/glob ulin ratio 1.9 (calc ) 1.0-2. 5 normal Not Available [address], [address], 05/31/2023 18:09:30 05/30/2005/31/2023 HEPAT IC FUNCT ION PANEL bilirubin, total 0.3 mg/dL 0.2-1. 2 normal Not Available [address], [address], 05/31/2023 18:09:30 05/30/20 23 05/31/2023 HEPAT IC FUNCT ION PANEL bilirubin, direct 0.0 mg/dL < or = 0.2 normal Not Available [address], [address], 05/31/2023 18:09:30 05/30/20 23 05/31/2023 HEPAT IC FUNCT ION PANEL bilirubin, indirect 0.3 mg/dL _(harjinder c) 0.2-1. 2 normal Not Available [address], [address], 05/31/2023 18:09:30 05/30/20 23 05/31/2023 HEPAT IC FUNCT ION PANEL alkaline phosphatase 55 U/L 31-125 normal Not Available [facility] [employer] [address], [address], 05/31/2023 18:09:30 05/30/20 23 05/31/2023 HEPAT IC FUNCT ION PANEL AST 15 U/L 10-35 normal Not Available [address], [address], 05/31/2023 18:09:30 05/30/20 23 05/31/2023 HEPAT IC FUNCT ION PANEL ALT 16 U/L 6-29 normal Not Available [address], [address], 05/31/2023 18:09:30 05/30/2005/31/2023 SED RATE BY MODIF IED WESTE RGREN sed rate by modified westergren 16 mm/h < or = 20 normal Not Available Not Available 05/31/2023 18:09:31 05/30/20 23 05/31/2023 CBC (INCL UDES DIFF/ PLT) white blood cell count 6.0 thous and/u L 3.8-10 .8 normal Not Available [address], [address], 05/31/2023 18:09:31 05/30/20 23 05/31/2023 CBC (INCL UDES DIFF/ PLT) red blood cell count 4.21 rufina on/uL 3.80-5 .10 normal Not Available [address], [address], 05/31/2023 18:09:31 05/30/20 23 05/31/2023 CBC (INCL UDES DIFF/ PLT) hemoglobin 13.3 g/dL 11.7-1 5.5 normal Not Available [address], [address], 05/31/2023 18:09:31 05/30/20 23 05/31/2023 CBC (INCL UDES DIFF/ PLT) hematocrit 39.9 % 35.0-4 5.0 normal Not Available [address], [address], 05/31/2023 18:09:31 05/30/20 23 05/31/2023 CBC (INCL UDES DIFF/ PLT) MCV 94.8 fL 80.0-1 00.0 normal Not Available [address], [address], 05/31/2023 18:09:31 05/30/20 23 05/31/2023 CBC (INCL UDES DIFF/ PLT) MCH 31.6 pg 27.0-3 3.0 normal Not Available [address], [address], 05/31/2023 18:09:31 05/30/20 23 05/31/2023 CBC (INCL UDES DIFF/ PLT) MCHC 33.3 g/dL 32.0-3 6.0 normal Not Available [address], [address], 05/31/2023 18:09:31 05/30/20 23 05/31/2023 CBC (INCL UDES DIFF/ PLT) RDW 12.8 % 11.0-1 5.0 normal Not Available [address], [address], 05/31/2023 18:09:31 05/30/20 23 05/31/2023 CBC (INCL UDES DIFF/ PLT) platelet count 232 thous and/u L 140-40 0 normal Not Available [address], [address], 05/31/2023 18:09:31 05/30/20 23 05/31/2023 CBC (INCL UDES DIFF/ PLT) MPV 10.1 fL 7.5-12 .5 normal Not Available [address], [address], 05/31/2023 18:09:31 05/30/20 23 05/31/2023 CBC (INCL UDES DIFF/ PLT) absolute neutrophils 3432 cells /uL 1500-7 800 normal Not Available [address], [address], 05/31/2023 18:09:31 05/30/20 23 05/31/2023 CBC (INCL UDES DIFF/ PLT) absolute lymphocytes 1806 cells /uL 850-39 00 normal Not Available [address], [address], 05/31/2023 18:09:31 05/30/20 23 05/31/2023 CBC (INCL UDES DIFF/ PLT) absolute monocytes 252 cells /uL 200-95 0 normal Not Available [address], [address], 05/31/2023 18:09:31 05/30/20 23 05/31/2023 CBC (INCL UDES DIFF/ PLT) absolute eosinophils 462 cells /uL 15-500 normal Not Available [address], [address], 05/31/2023 18:09:31 05/30/20 23 05/31/2023 CBC (INCL UDES DIFF/ PLT) absolute basophils 48 cells /uL 0-200 normal Not Available [address], [address], 05/31/2023 18:09:31 05/30/20 23 05/31/2023 CBC (INCL UDES DIFF/ PLT) neutrophils 57.2 % normal Not Available [address], [address], 05/31/2023 18:09:31 05/30/20 23 05/31/2023 CBC (INCL UDES DIFF/ PLT) lymphocytes 30.1 % normal Not Available [address], [address], 05/31/2023 18:09:31 05/30/20 23 05/31/2023 CBC (INCL UDES DIFF/ PLT) monocytes 4.2 % normal Not Available [address], [address], 05/31/2023 18:09:31 05/30/20 23 05/31/2023 CBC (INCL UDES DIFF/ PLT) eosinophils 7.7 % normal Not Available [facility] [address] [place], [address], 05/31/2023 18:09:31 05/30/20 23 05/31/2023 CBC (INCL UDES DIFF/ PLT) basophils 0.8 % normal Not Available [facility] [address] [place], [address], 05/31/2023 18:09:31 05/30/20 23 05/31/2023 KILLIAN SCREE N, IFA, W/REF L TITER AND PATTE RN KILLIAN screen, ifa NEGATI VE negati ve normal KILLIAN IFA is a first line scree n for detec ting the prese nce of up to appro ximat jose 150 autoa ntibo dies in vario us autoi mmune disea ses. A negat enzo KILLIAN IFA resul t sugge sts an KILLIAN-a ssoci ated autoi mmune disea se is not prese nt at this time, but is not defin itive . If there is high clini harjinder suspi cion for Sjogr en's syndr ome, testi ng for anti- SS-A/ Ro antib luis alberto shoul d be consi dered . Anti- Chloé-1 antib luis alberto shoul d be consi dered for clini cass suspe cted infla mmato ry myopa otis . AC-0: Negat enzo Inter natio nal Conse nsus on KILLIAN Patte rns (http s://d oi.or g/10. 1515/ [facility]- 2017- 0052) For addit ional infor batsheva cuevas e refer to http: //russel perez.Que stDia gnost ics.c om/fa q/FAQ 177 (This link is being provi ded for infor giuliana nal/ educa manda l purpo ses only. ) Not Available Not Available 05/31/2023 18:09:32 05/30/20 23 05/31/2023 RHEUM ATOID FACTO R rheumatoid factor <14 IU/mL <14 normal Not Available [facility] [address] [place], [address], 05/31/2023 18:09:33 05/30/2005/31/2023 TSH TSH 3.37 mIU/L normal Refer ence Range > or = 20 Years 0.40- 4.50 Pregn patricia Range s First trime ster 0.26- 2.66 Secon d trime ster 0.55- 2.73 Third trime ster 0.43- 2.91 Not Available [facility] [address] [place], [address], 05/31/2023 18:09:33 08/11/2008/11/2023 CBC/C OMPLE TE BLD COUNT W/DIF F white blood cells 6.3 x10'3 /uL 4.2-10 .8 Not Available [facility] (Lab) [address] [place], [address], 08/11/2023 18:50:16 08/11/20 23 08/11/2023 CBC/C OMPLE TE BLD COUNT W/DIF F red blood cells 4.20 x10'6 /uL 3.80-5 .20 Not Available [facility] (Lab) [address] [place], [address], 08/11/2023 18:50:16 08/11/20 23 08/11/2023 CBC/C OMPLE TE BLD COUNT W/DIF F hemoglobin 14.0 g/dL 12.0-1 5.6 Not Available [facility] (Lab) [address] [place], [address], 08/11/2023 18:50:16 08/11/20 23 08/11/2023 CBC/C OMPLE TE BLD COUNT W/DIF F hematocrit 40.7 % 35.7-4 5.7 Not Available [facility] (Lab) [address] [place], [address], 08/11/2023 18:50:16 08/11/2008/11/2023 CBC/C OMPLE TE BLD COUNT W/DIF F mean red cell volume 96.9 fL 82.0-9 9.0 Not Available [facility] (Lab) [address] [facility] [place], [address], 08/11/2023 18:50:16 08/11/2008/11/2023 CBC/C OMPLE TE BLD COUNT W/DIF F mean red cell hemoglobin 33.3 pg 27.0-3 3.0 high Not Available [facility] (Lab) [address] [place], [address], 08/11/2023 18:50:16 08/11/2008/11/2023 CBC/C OMPLE TE BLD COUNT W/DIF F mean RBC HGB concentratio n 34.4 g/dL 31.0-3 6.0 Not Available [facility] (Lab) [address] [place], [address], 08/11/2023 18:50:16 08/11/2008/11/2023 CBC/C OMPLE TE BLD COUNT W/DIF F red cell distribution width 12.7 % 11.8-1 5.5 Not Available [facility] (Lab) [address] [place], [address], 08/11/2023 18:50:16 08/11/2008/11/2023 CBC/C OMPLE TE BLD COUNT W/DIF F platelets 274 x10'3 /uL 150-40 0 Not Available [facility] (Lab) [address] [place], [address], 08/11/2023 18:50:16 08/11/20 23 08/11/2023 CBC/C OMPLE TE BLD COUNT W/DIF F mean platelet volume 10.6 fL 9.0-12 .4 Not Available [facility] (Lab) [address] [place], [address], 08/11/2023 18:50:16 08/11/2008/11/2023 CBC/C OMPLE TE BLD COUNT W/DIF F neutrophils 61.7 % 39.0-7 2.0 Not Available [facility] (Lab) [address] [place], [address], 08/11/2023 18:50:16 08/11/2008/11/2023 CBC/C OMPLE TE BLD COUNT W/DIF F lymphocytes 25.8 % 16.0-4 7.0 Not Available [facility] (Lab) [address] [place], [address], 08/11/2023 18:50:16 08/11/2008/11/2023 CBC/C OMPLE TE BLD COUNT W/DIF F monocytes 5.7 % 5.0-12 .0 Not Available [facility] (Lab) [address] [place], [address], 08/11/2023 18:50:16 08/11/2008/11/2023 CBC/C OMPLE TE BLD COUNT W/DIF F eosinophils 5.6 % 1.0-7. 0 Not Available [facility] (Lab) [address] [place], [address], 08/11/2023 18:50:16 08/11/2008/11/2023 CBC/C OMPLE TE BLD COUNT W/DIF F basophils 1.0 % 0.0-2. 0 Not Available [facility] (Lab) [address] [place], [address], 08/11/2023 18:50:16 08/11/2008/11/2023 CBC/C OMPLE TE BLD COUNT W/DIF F immature granulocytes 0.2 % 0.00-0 .50 Not Available [facility] (Lab) [address] [place], [address], 08/11/2023 18:50:16 08/11/2008/11/2023 CBC/C OMPLE TE BLD COUNT W/DIF F neutrophils, absolute count 3.87 x10'3 /uL 1.5-8. 0 Not Available [facility] (Lab) [address] [place], [address], 08/11/2023 18:50:16 08/11/2008/11/2023 CBC/C OMPLE TE BLD COUNT W/DIF F lymphocytes, absolute count 1.62 x10'3 /uL 1.07-3 .43 Not Available [facility] (Lab) [address] [place], [address], 08/11/2023 18:50:16 08/11/2008/11/2023 CBC/C OMPLE TE BLD COUNT W/DIF F monocytes, absolute count 0.36 x10'3 /uL 0.29-0 .99 Not Available [facility] (Lab) [address] [place], [address], 08/11/2023 18:50:16 08/11/2008/11/2023 CBC/C OMPLE TE BLD COUNT W/DIF F eosinophils, absolute count 0.35 x10'3 /uL 0.02-0 .53 Not Available [facility] (Lab) [address] [place], [address], 08/11/2023 18:50:16 08/11/2008/11/2023 CBC/C OMPLE TE BLD COUNT W/DIF F basophils, absolute count 0.06 x10'3 /uL 0.01-0 .08 Not Available [facility] (Lab) [address] [place], [address], 08/11/2023 18:50:16 10/05/20 23 08/11/2023 CBC/C OMPLE TE BLD COUNT W/DIF F immature granulocytes ,absolute 0.01 x10'3 /uL 0.00-0 .05 Not Available [facility] (Lab) [address] [place], [address], 08/11/2023 18:50:16 08/11/20 23 08/11/2023 CBC/C OMPLE TE BLD COUNT W/DIF F nucleated red blood cells 0.0 % -0 Not Available [facility] (Lab) [address] [place], [address], 08/11/2023 18:50:16 08/11/2008/11/2023 CBC/C OMPLE TE BLD COUNT W/DIF F NRBC# 0.00 x10'3 /uL Not Available [facility] (Lab) [address] [place], [address], 08/11/2023 18:50:16 08/11/2008/11/2023 LITHI UM lithium 0.6 mmol/ L 0.6-1. 2 Not Available [facility] (Lab) [address] [place], [address], 08/11/2023 18:55:24 08/11/20 23 08/11/2023 BASIC METAB OLIC PANEL sodium 140 mmol/ L 137-14 5 Not Available [facility] (Lab) [address] [place], [address], 08/11/2023 18:55:55 08/11/2008/11/2023 BASIC METAB OLIC PANEL potassium 4.1 mmol/ L 3.5-5. 1 Not Available [facility] (Lab) [address] [place], [address], 08/11/2023 18:55:55 08/11/20 23 08/11/2023 BASIC METAB OLIC PANEL chloride 109 mmol/ L 98-107 high Not Available [facility] (Lab) [address] [place], [address], 08/11/2023 18:55:55 08/11/2008/11/2023 BASIC METAB OLIC PANEL carbon dioxide 25 mmol/ L 22-30 Not Available [facility] (Lab) [address] [place], [address], 08/11/2023 18:55:55 08/11/2008/11/2023 BASIC METAB OLIC PANEL anion gap 10.1 mmol/ L 14-22 low Not Available [facility] (Lab) [address] [place], [address], 08/11/2023 18:55:55 08/11/2008/11/2023 BASIC METAB OLIC PANEL glucose 120 mg/dL 70-99 high Not Available [facility] (Lab) [address] [place], [address], 08/11/2023 18:55:55 08/11/2008/11/2023 BASIC METAB OLIC PANEL BUN 26 mg/dL 8-19 high Not Available [facility] (Lab) [address] [place], [address], 08/11/2023 18:55:55 08/11/2008/11/2023 BASIC METAB OLIC PANEL creatinine 0.75 mg/dL 0.66-1 .25 Not Available [facility] (Lab) [address] [place], [address], 08/11/2023 18:55:55 08/11/2008/11/2023 BASIC METAB OLIC PANEL GFR >60 Refer ence Range : [place] ge GFR Healt hy Adult : >60 mL/mi n/1.7 3 m2 Chron ic Kidne y Disea se: 15-60 mL/mi n/1.7 3 m2 Kidne y Failu re: <15/m L/min /1.73 m2 www.n iddk. nih.g ov The MDRD study equat ion has not been valid ated in child sophia <18 years of age; pregn ant women ; the elder ly >85 years of age; or in some racia l or ethni c subgr oups, such as Hispa nics. Outsi de the valid ated kenneth eters , estim ated GFR is less accur ate, requi ring clini harjinder judgm ent on a case- by-ca se basis . Clini harjinder inter preta tion for other races and ages must be made by the clini cachorro. The MDRD study equat ion has not been valid ated for the evalu ation of serum creat inine relat ed to nutri manda l statu s or medic ation usage . For perso ns <18 years of age, a pedia tric GFR calcu lator is avail able on the [facility] websi te: https ://zoraida w.kid marietta.o rg/pr ofess ional s/kdo qi/gf r_cal culat or Not Available [facility] (Lab) [address] [place], [address], 08/11/2023 18:55:55 08/11/20 23 08/11/2023 BASIC METAB OLIC PANEL calcium 9.4 mg/dL 8.4-10 .2 Not Available [facility] (Lab) [address] [place], [address], 08/11/2023 18:55:55 08/11/20 23 08/11/2023 VITAM IN D 25-HY DROXY vd25oh 29.2 NG/mL 30-100 low Vitam in D Statu s: Defic ient: <20 ng/mL Insuf ficie nt: 20-29 ng/mL Suffi cient : 30-10 0 ng/mL Not Available [facility] (Lab) [address] [place], [address], 08/11/2023 19:29:37 08/11/20 23 08/11/2023 TSH thyroid-stim ulating hormone 3.230 uIU/m L 0.465- 4.680 Not Available [facility] (Lab) [address] [place], [address], 08/11/2023 19:39:59 08/11/2008/11/2023 VITAM IN B12 (ALEX CARRIE ) vb12 394 pg/mL 239-93 1 Not Available [facility] (Lab) [address] [place], [address], 08/11/2023 20:25:58 08/11/2008/11/2023 FOLAT E, SERUM /PLAS MA folate 6.94 NG/mL 2.76-2 0.0 Not Available [facility] (Lab) [address] [place], [address], 08/11/2023 20:26:04 08/11/2008/16/2023 VITAM IN B1 (THIA MINE) , BLOOD vit. B1, whole blood 92.8 nmol/ L 66.5-2 00.0 Test( s) 26869 8-Vit . B1, Whole Blood was devel oped and its perfo rmanc e katlyn cteri stics deter mined by [facility]. It has not been clear ed or appro nicho by the Food and Drug Admin istra tion. Perfo rmed at: [facility] daisy hannon [address] [place] [address] Lab Direc tor: Marlena suero MD, Phone : [phone] Not Available [facility] (Lab) [address] [place], [address], 08/16/2023 18:08:46 03/06/20 24 02/28/2024 MAMMO , scree ellis, digit al, bilat eral No observ ation record ed. [email or web address] [facility] [address] [place], [address], 03/08/2024 09:07:28 03/26/20 24 03/26/2024 MAMMO , diagn ostic , bilat eral No observ ation record ed. [email or web address] [facility] [address] [place], [address], 03/26/2024 13:27:22 03/26/20 24 03/26/2024 US, jean-paul jacob No observ ation record ed. [email or web address] [facility] [address] [facility] [place], [address], 03/26/2024 13:28:08 09/17/20 24 09/12/2024 XR, thora cic spine , 2 view No observ ation record ed. [email or web address] [facility] [address] [place], [address], 09/17/2024 15:54:57 Result Notes None recorded. Problems Name Problem SNOMED Code Status Onset Date Resolution Date Notes Provider Name and Address Organization Details Recorded Time Pain in upper limb 755224632 Active Not Available [facility] 02:45:45 Celluliti s 187619923 Active Not Available [facility] 3 02:45:45 Backache 012944102 Active Not Available [facility] 3 02:45:45 Abdominal pain 88282344 Active 2021 Not Available [facility] 3 02:45:45 Low back pain 808384979 Active Alyson Bruce APRN [address] [facility], [address], [address] , 10sec 5 10:57:49 Bronchiti s 17393951 Active Not Available [facility] 3 02:45:45 Vitamin D deficienc y 65263308 Active Alyson Bruce APRN [address] [facility], [place] [address], [place], [address] , 10sec 4 15:24:57 Depressiv e disorder 65091842 Active Not Available [facility] 02:45:46 Obesity 182236766 Active Alyson Bruce APRN [address] [facility] [address], [place], [address] , [place] [facility] 4 15:24:50 Abnormal cervical Papanicol aou smear 512757817 Active Not Available [facility] 3 02:45:46 Smokes tobacco daily 160694938 Active Alyson Bruce APRN [address], [place], [address] , [facility] 4 15:25:11 Anxiety 27359441 Active Alyson Bruce APRN [address], [place], [address] , [facility] 4 15:24:19 Carpal tunnel syndrome 54653977 Active Alyson Bruce APRN [address], [address], [place], [address] , [facility] 4 15:24:25 Joint pain 35125389 Active Not Available [facility] 3 02:45:46 Essential hypertens ion 07853815 Active Alyson Bruce APRN [address], [place], [address] , [facility] 4 15:24:36 Cyst of ovary 48349293 Active complex Not Available [facility] 3 02:45:46 Epigastri c pain 68327879 Active 2021 Not Available [facility] 3 02:45:46 COVID-19 326909642 Active 2021 Not Available [facility] 3 02:45:46 Fatigue 36010510 Active Not Available [facility] 3 02:45:47 Autoimmun e disease 87205494 Active Alyson Bruce APRN [address], [place], [address] , [facility] 4 15:24:07 Bipolar disorder 94385963 Active 2022 Alyson Bruce APRN [address], [place], [address] , [facility] 4 15:24:22 Hypothyro idism 78545530 Active 2022 Alyson Bruce APRN [address], [place], [address] , [facility] 4 15:24:46 Allergy to food 061849908 Active 2022 Alyson Bruce APRN [address], [place], [address] , [facility] 4 15:24:10 Pterygium of right eye 889398162565 101 Active 2022 Mariluz Alva MD [address], [place], [address] , [facility] 3 11:11:52 Injury of eye region 976519248 Active 2022 Mariluz Alva MD [address], [place], [address] , [facility] 3 11:16:17 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 2022 Mariluz Alva MD [address], [place], [address] , [facility] 3 07:50:49 Upper respirato ry infection 51606637 Active 2022 DESIREE Tolliver [address] [facility], [place], [address] , [facility] 3 17:09:06 Cobalamin deficienc y 392009251 Active 2022 Alyson Bruce APRN [address], [place], [address] , [facility] 4 15:24:32 Cough 63215805 Active 2022 Mariluz Alva MD [address], [place], [address] , [facility] 3 15:48:59 Multiple joint pain 03769206 Active 2022 Mariluz Alva MD [address], [place], [address] , [facility] 3 07:37:30 Acute upper respirato ry infection 55763270 Active 2023 Alyson Bruce APRN [address], [place], [address] , [facility] 4 13:49:49 Osteoarth ritis 743185124 Active 2023 Alyson Bruce APRN [address], [place], [address] , [facility] 4 10:17:57 Prolapsed lumbar intervert ebral disc 235160074 Active 2023 Alyson Bruce APRN [address], [place], [address] , [facility] 4 10:18:12 Chronic osteoarth ritis 80582677 Active 2023 Alyson Bruce APRN [address], [place], [address] , [facility] 4 10:21:55 Neuralgia 62369949 Active 2024 Alyson Bruce APRN [address], [place], [address] , [facility] 5 11:00:19 Wheezing 34975172 Active 2024 Alyson Bruce APRN [address], [place], [address] , [facility] 5 11:06:45 Hyperlipi demia 82623900 Active 2024 Alyson Bruce APRN [address], [place], [address] , [facility] 5 12:19:06 Problem Notes None recorded. Procedures Surgical History Date Name Laterality Status Provider Name and Address Organization Details Recorded Time Back Surgery completed RYANN Mccarthy Gust[facility] 07/31/2024 10:50:06 Hysterectomy completed RYANN Mccarthy Gustavo [facility] 07/31/2024 10:50:19 Carpal tunnel surgery completed RYANN Mccarthy Gustavo [facility] 07/31/2024 10:50:36 repair of ulnar digital nerve completed RYANN Mccarthy Gustavo [facility] 07/31/2024 10:51:12 Sinus Surgery [facility] 07/31/2024 10:51:36 Imaging Results Imaging Date Name Status LastModified by Organiz ation Details LastModified Time 02/28/2024 MAMMO, screening, digital, bilateral completed [address]alor [id number] [place], [address], 03/08/2024 09:07:28 03/26/2024 MAMMO, diagnostic, bilateral completed [id number] [place], [address], 03/26/2024 13:27:22 03/26/2024 US, breast, bilateral completed [id number] [place], [address], 03/26/2024 13:28:08 09/12/2024 XR, thoracic spine, 2 view completed [email or web address] [facility] [address] [place], [address], 09/17/2024 15:54:57 Procedure Notes None recorded. Medical Equipment None Reported. Allergies Allergen ID Allergen Name Allergen Category Reaction Reaction Severity Criticality Documentation Date Start Date Code Code System Note Provider Name and Address Organization Details Recorded Time 3853 shellfish derived food,medi cation Not available Not available Not available 01/05/2023 07239 UNK Not Available [facility] 02:51:24 3854 morphine medicatio n Not available Not available Not available 01/05/2023 7052 RxNorm Not Available [facility] 02:51:24 Medications Name Sig Start Date Stop Date Status Note LastModified by Organization Details LastModified Time carisoprodo l 350 mg tablet TAKE 1 TABLET BY MOUTH EVERY 8 HOURS NEEDED FOR SPASM active Not Available Not Available No t Available cyclobenzap rine 10 mg tablet TAKE 1 TABLET BY MOUTH THREE TIMES A DAY NEEDED active Not Available Not Available No t Available lamotrigine 150 mg tablet TAKE 1 TABLET BY MOUTH ONCE DAILY 2024 active Not Available Not Available Not Avai lable silver sulfadiazin e 1 % topical cream APPLY A 1/16 INCH (1.5 MM) THICK LAYER TO ENTIRE BURN AREA BY TOPICALRO DEANNA 2 TIMES PER DAY 11/25 completed Not Available Not Available Not Available paroxetine 10 mg tablet TK 1 T PO QD 12/05 completed Not Available Not Available Not Available benztropine 0.5 mg tablet 12/05 completed Not Available Not Available Not Available Differin 0.1 % topical cream 01/27 completed Not Available Not Available Not Available citalopram 40 mg tablet TAKE ONE TABLET BY MOUTH ONCE DAILY 09/04 completed Not Available Not Available Not Available cetirizine 10 mg tablet TK 1 T PO QD 12/05 completed Not Available Not Available Not Available atorvastati n 10 mg tablet Take 1 tablet every day by oral route as directed. 2024 active Not Available Not Available Not Avai lable azithromyci n 250 mg tablet TAKE 2 TABLETS (500 MG) BY ORAL ROUTE ONCE DAILY FOR 1 DAY THEN 1 TABLET (250 MG) BY ORAL ROUTE ONCE DAILY FOR 4 DAYS 10/02 completed Not Available Not Available Not Available alprazolam 1 mg tablet Take 1 tablet every day by oral route. 05/11 completed Not Available Not Available Not Available ofloxacin 0.3 % eye drops active Not Available Not Available Not Available tizanidine 4 mg tablet TAKE 1 TABLET BY MOUTH EVERY 6 HOURS NEEDED 2024 active Not Available Not Available Not Avai lable benzonatate 200 mg capsule TAKE 1 CAPSULE BY MOUTH NEEDED FOR COUGH THREE TIMES DAILY 08/11 completed Not Available Not Available Not Available hydrocodone 5 mg-acetamin ophen 325 mg tablet TAKE 1 TABLET BY MOUTH EVERY 4 HOURS NEEDED FOR MODERATE PAIN . DO NOT EXCEED 6 PER 24 HOURS active Not Available Not Available No t Available meloxicam 15 mg tablet TAKE 1 TABLET BY MOUTH EVERY DAY NEEDED active Not Available Not Available No t Available famotidine 40 mg tablet Take 1 tablet every day by oral route at bedtime for 30 days. 07/31 completed Not Available Not Available Not Available Medrol (David) 4 mg tablets in a dose pack Take 1 dose pk every day by oral route as directed. 10/02 completed Not Available Not Available Not Available prednisone 20 mg tablet TAKE 2 TABLETS BY MOUTH ONCE DAILY FOR 5 DAYS 08/11 completed Not Available Not Available Not Available lithium carbonate ER 300 mg tablet,exte nded release 1 po qAM and 2 po qhs 2024 active Not Available Not Available Not Avai lable hydroxyzine HCl 50 mg tablet TAKE 1 TABLET BY MOUTH EVERY 6 HOURS NEEDED FOR ANXIETY 2024 active Not Available Not Available Not Avai lable phentermine 37.5 mg tablet Take 1 tablet by mouth once daily 07/30 completed Not Available Not Available Not Available amlodipine 5 mg tablet Take 1 tablet every day by oral route. 2024 active Not Available Not Available Not Avai lable tramadol 50 mg tablet TAKE 1 TABLET BY MOUTH THREE TIMES DAILY active Not Available Not Available No t Available ketorolac 30 mg/mL (1 mL) injection solution 1 ml IM x 1 03/24 completed Not Available Not Available Not Available lithium carbonate ER 450 mg tablet,exte nded release TK 2 TS PO QHS 01/27 completed Not Available Not Available Not Available levothyroxi ne 25 mcg tablet TAKE 1 TABLET BY MOUTH ONCE DAILY 09/17 completed Not Available Not Available Not Available lamotrigine 25 mg tablet TAKE 1 TABLET BY MOUTH ONCE DAILY FOR 14 DAYS THEN 2 ONCE DAILY FOR 14 DAYS 03/24 completed Not Available Not Available Not Available amoxicillin 875 mg tablet Take 1 tablet every 12 hours by oral route for 7 days. active Not Available Not Available No t Available citalopram 20 mg tablet TAKE ONE TABLET BY MOUTH EVERY DAY 05/11 completed Not Available Not Available Not Available amitriptyli ne 25 mg tablet TAKE 1 TABLET BY MOUTH AT BEDTIME active Not Available Not Available No t Available prednisolon e acetate 1 % eye drops,suspe nsion INSTILL 1 DROP INTO RIGHT EYE SEVEN TIMES DAILY 07/30 completed Not Available Not Available Not Available estradiol 1 mg tablet TAKE 1 TABLET BY MOUTH ONCE DAILY active Not Available Not Available No t Available dicyclomine 20 mg tablet 1 po tid prn 08/04 completed Not Available Not Available Not Available lithium carbonate 600 mg capsule TAKE 1 CAPSULE BY MOUTH TWICE DAILY 11/25 completed Not Available Not Available Not Available lithium carbonate 300 mg capsule TAKE 1 CAPSULE BY MOUTH ONCE DAILY 10/17 completed Not Available Not Available Not Available prednisolon e sodium phosphate 1 % eye drops INSTILL 1 DROP INTO THE RIGHT EYE FOUR TIMES A DAY FOR 10 DAYS, THEN TAPER TO 3 TIMES A DAY FOR 2 DAYS,THEN 2 TIMES A DAY FOR TWO DAYS, THEN ONCE DAILY FOR 3 DAYS 07/30 completed Not Available Not Available Not Available levothyroxi ne 50 mcg tablet Take 1 tablet by mouth once daily 2024 active Not Available Not Available Not Avai lable cephalexin 500 mg capsule active Not Available Not Available Not Available paroxetine 20 mg tablet 12/05 completed Not Available Not Available Not Available pantoprazol e 40 mg tablet,brandi yed release TAKE 1 TABLET BY MOUTH ONCE DAILY 30 MINUTES BEFORE BREAKFAST FOR ACID REFLUX 07/31 completed Not Available Not Available Not Available polymyxin B sulfate 10,000 unit-trimet hoprim 1 mg/mL eye drops INSTILL 1 DROP INTO RIGHT EYE EVERY 3 HOURS FOR 7 DAYS WHILE AWAKE. DO NOT EXCEED 6 DOSES IN 24 HOURS. 12/08 completed Not Available Not Available Not Available diclofenac sodium 75 mg tablet,brandi yed release TAKE 1 TABLET BY MOUTH TWICE DAILY NEEDED 01/22 completed Not Available Not Available Not Available cephalexin 500 mg tablet Take 1 tablet twice a day by oral route for 7 days. 11/25 completed Not Available Not Available Not Available hydrochloro thiazide 25 mg tablet 1 po qday 2024 active Not Available Not Available Not Avai lable alprazolam 2 mg tablet 1/2 to 1 tab po TID prn 01/27 completed Not Available Not Available Not Available gabapentin 100 mg capsule TAKE 1 CAPSULE BY MOUTH THREE TIMES A DAY 01/22 completed Not Available Not Available Not Available ergocalcife rol (vitamin D2) 1,250 mcg (50,000 unit) capsule TAKE 1 CAPSULE BY MOUTH ONCE A WEEK 03/24 completed Not Available Not Available Not Available Cheratussin AC 10 mg-100 mg/5 mL oral liquid Take 10 mL every 6 hours by oral route as needed. 06/17 completed Not Available Not Available Not Available levofloxaci n 500 mg tablet Take 1 tablet every 24 hours by oral route for 5 days. active Not Available Not Available No t Available albuterol sulfate HFA 90 mcg/actuati on aerosol inhaler Inhale 2 puffs every 4 hours by inhalatio n route. 2024 active Not Available Not Available Not Avai lable losartan 100 mg tablet TAKE 1 TABLET BY MOUTH ONCE DAILY 2024 active Not Available Not Available Not Avai lable neomycin 3.5 mg-polymyxi n 10,000 unit-hydroc ort 10 mg/mL eye drop,susp INSTILL 1 DROP INTO AFFECTED EYE(S) EVERY 4 HOURS WHILE AWAKE active Not Available Not Available No t Available doxycycline hyclate 100 mg tablet TAKE 1 TABLET BY MOUTH TWICE DAILY FOR 7 DAYS 07/30 completed Not Available Not Available Not Available lamotrigine 100 mg tablet TAKE 1 TABLET BY MOUTH ONCE DAILY 07/30 completed Not Available Not Available Not Available naproxen 500 mg tablet 01/22 completed Not Available Not Available Not Available oxycodone 5 mg tablet 01/26 completed Not Available Not Available Not Available cyclobenzap rine 5 mg tablet TAKE 1 TABLET BY MOUTH THREE TIMES DAILY NEEDED FOR SPASMS active Not Available Not Available No t Available aripiprazol e 5 mg tablet TAKE 1 TABLET BY MOUTH ONCE DAILY FOR 30 DAYS 01/26 completed Not Available Not Available Not Available bupropion HCl XL 300 mg 24 hr tablet, extended release Take 1 tablet every day by oral route. active Not Available Not Available No t Available bupropion HCl XL 150 mg 24 hr tablet, extended release Take 1 tablet every day by oral route in the morning. 05/08 completed Not Available Not Available Not Available duloxetine 60 mg capsule,del ayed release Take 1 capsule every day by oral route. active Not Available Not Available No t Available bromfenac 0.09 % eye drops INSTILL 1 DROP INTO RIGHT EYE THREE TIMES DAILY FOR 10 DAYS active Not Available Not Available No t Available pregabalin 75 mg capsule Take 1 capsule twice a day by oral route as directed. 2024 active Not Available Not Available Not Avai lable aripiprazol e 2 mg tablet 10/13 completed Not Available Not Available Not Available GaviLyte-G 236 gram-22.74 gram-6.74 gram-5.86 gram oral solution DIRECTED 08/04 completed Not Available Not Available Not Available Lotemax 0.5 % eye ointment APPLY TO THE RIGHT EYE NIGHTLY active Not Available Not Available No t Available EpiPen 2-David 0.3 mg/0.3 mL injection, auto-inject or inject 0.3 ml sc x 1 prn severe allergic reaction active Not Available Not Available No t Available melatonin 10 mg capsule Take by oral route. 12/05 completed Not Available Not Available Not Available Latuda 60 mg tablet TK 1 T PO QD WF 01/27 completed Not Available Not Available Not Available Saxenda 3 mg/0.5 mL (18 mg/3 mL) subcutaneou s pen injector 0.6 mg sc qday x 7 days then 1.2 mg sc qday x 7 days then 1.8 mg sc qday x 7 days then 2.4 mg sc qday x 7 days 03/03 completed Not Available Not Available Not Available Vraylar 1.5 mg capsule 1 po qday x 7 days then increase to 2 po qday active Not Available Not Available No t Available BD Ultra-Fine Micro Pen Needle 32 gauge x 1/4 active Not Available Not Available Not Available Subvenite Starter ([place]) Kit 25 mg (42)-100 mg (7) tablet, dose pack take as directed 03/24 completed Not Available Not Available Not Available BinaxNOW COVID-19 Ag Self Test kit Use as Directed on the Package 12/08 completed Not Available Not Available Not Available Wegovy 0.25 mg/0.5 mL subcutaneou s pen injector 0.5 ml sc qweek 03/03 completed Not Available Not Available Not Available Paxlovid 300 mg (150 mg x 2)-100 mg tablets in a dose pack 1 dose po bid x 5 days. GFR > 60 03/03 completed Not Available Not Available Not Available Vitals Date Recorded Body height Body mass index (BMI) Body weight Body temperature Heart rate Oxygen saturation Oxygen saturation in Arterial blood by Pulse oximetry Systolic blood pressure Diastolic blood pressure Provider Name and Address Organization Details Last Updated DateTime 3 163.83 cm 32.3 kg/m2 99301.1 4 g 97.5 [degF] 82 /min 98 % 98 % 122 mm[Hg] 70 mm[Hg] Nathanael Roberson RN [facility] [employer] [facility] 3 10:57:16 Date Recorded Body height Body mass index (BMI) Body weight Body temperature Heart rate Oxygen saturation Oxygen saturation in Arterial blood by Pulse oximetry Systolic blood pressure Diastolic blood pressure Provider Name and Address Organization Details Last Updated DateTime 3 163.83 cm 32.6 kg/m2 10070.3 3 g 97.9 [degF] 84 /min 96 % 96 % 122 mm[Hg] 74 mm[Hg] Nathanael Roberson RN [facility] [employer] [facility] 3 08:05:59 Date Recorded Body height Body mass index (BMI) Body weight Body temperature Heart rate Oxygen saturation Oxygen saturation in Arterial blood by Pulse oximetry Systolic blood pressure Diastolic blood pressure Provider Name and Address Organization Details Last Updated DateTime 3 163.83 cm 31.1 kg/m2 50112 g 97.9 [degF] 87 /min 96 % 96 % 120 mm[Hg] 78 mm[Hg] Nathanael Roberson RN [facility] [employer] [facility] 3 08:05:05 Date Recorded Body height Body mass index (BMI) Body weight Body temperature Heart rate Oxygen saturation Oxygen saturation in Arterial blood by Pulse oximetry Pain severity - 0-10 verbal numeric rating [Score] - Reported Systolic blood pressure Diastolic blood pressure Provider Name and Address Organization Details Last Updated DateTime 4 163.83 cm 31.6 kg/m2 50016.7 7 g 98.4 [degF] 65 /min 98 % 98 % 0 124 mm[Hg] 74 mm[Hg] Ana Luisa Soni MA [facility] [employer] [facility] 4 10:41:48 Date Recorded Body height Body mass index (BMI) Body weight Body temperature Heart rate Oxygen saturation Oxygen saturation in Arterial blood by Pulse oximetry Systolic blood pressure Diastolic blood pressure Provider Name and Address Organization Details Last Updated DateTime 5 163.83 cm 36 kg/m2 50512.1 7 g 96.8 [degF] 73 /min 94 % 94 % 118 mm[Hg] 72 mm[Hg] Clau Betancourt MA 10sec 5 10:41:51 Social History Question Answer Notes LastModified by Organization Details LastModified Time Tobacco Smoking Status Former Smoker Ana Luisa Soni MA [facility] 10sec 07/31/2024 10:49:17 What Is Your Level Of Alcohol Consumption? None [id number] Information not available 01/05/2023 What Is Your Level Of Caffeine Consumption? Moderate [id number] Information not available 01/05/2023 How Much Tobacco Do You Chew? None [id number] Information not available 01/05/2023 In The 14 Days Before Symptom Onset, Have You Had Close Contact With A Laboratory-conf irmed COVID-19 While That Case Was Ill? No [id number] Information not available 01/05/2023 In The 14 Days Before Symptom Onset, Have You Had Close Contact With A Person Who Is Under Investigation For COVID-19 While That Person Was Ill? No [id number] Information not available 01/05/2023 Are You Currently Employed? No Information not available 07/31/2024 What Type Of Diet Are You Following? REGULAR [id number] Information not available 01/05/2023 Which Illicit Or Recreational Drugs Have You Used? NO [id number] Information not available 01/05/2023 Do You Or Have You Ever Used E-cigarettes Or Vape? Current User Of Electronic Cigarettes Occassionally Information not available 07/31/2024 Have There Been Any Changes To Your Family Or Social Situation? No Information not available 07/31/2024 When Did You Quit Smoking? 1-5yearssincelast cigarette Information not available 07/31/2024 Do You Use Insect Repellent Routinely? No Information not available 07/31/2024 Where Do You Live? [facility] Information not available 07/31/2024 What Was The Date Of Your Most Recent Tobacco Screening? 01/22/2025 [email or web address] Information not available 01/22/2025 How Many Children Do You Have? 3 Information not available 07/31/2024 Do You Have Any Pets? Yes Information not available 07/31/2024 What Is Your Relationship Status? Information not available 07/31/2024 Do You Use Your Seat Belt Or Car Seat Routinely? Yes Information not available 07/31/2024 Do You Have Smoke And Carbon Monoxide Detectors In Your Home? Yes Information not available 07/31/2024 Are You Passively Exposed To Smoke? No Information not available 07/31/2024 Do You Or Have You Ever Used Smokeless Tobacco? Never Used Smokeless Tobacco [id number] Information not available 01/05/2023 Are There Any Smokers In Your House? No Information not available 07/31/2024 How Much Tobacco Do You Smoke? 2 PPD Information not available 07/31/2024 Do You Feel Stressed (tense, Restless, Nervous, Or Anxious, Or Unable To Sleep At Night)? [id number] Information not available 07/31/2024 Do You Use Any Illicit Or Recreational Drugs? No Information not available 07/31/2024 Do You Use Sunscreen Routinely? No [id number].735 [id number] Information not available 01/05/2023 Have You Recently Traveled Abroad? No [id number].260 [id number] Information not available 01/05/2023 Sex: Female Functional Status Question Answer Note LastModified by Organizat ion Details LastModified Time What is your exercise level? Occasional [id number] Information not available 01/05/2023 Mental Status None recorded. Family History Relationship Description Onset Age of this Age Resolved Age Notes LastModified by Organization Details LastModified Time Mother Disorder of lung bronch ietasi s [id number] Not available 01/05/2023 02:41:03 Father Hypertensive disorder [id number] Not available 01/05/2023 02:41:03 Medical History No medical history recorded. Gynecological History Statement/Question Response Abnormal Pap N Date of Last Mammogram Date of LMP Dislike of Light during Menstrual Headac he N Date of Last Pap Current Control Method Hysterectom y Breast Problems no How many live births 3 Date of Last Colonoscopy Menses Monthly N Discharge no Obstetrics History GPAL:G 3 P 1 2 0 3 Type Value Multiple Births 0 Full Term 1 Induced 0 Spontaneous 0 Premature 2 Living 3 Ectopics 0 Total 3 Immunizations Vaccine Type Date Status Note Provider Nam e and Address Organization Details Recorded Time Influenza, split virus, trivalent, PF 09/05/2013 completed Alyson Bruce APRN [address], [place], [address], 10sec 07/30/2024 15:21:47 COVID-19, mRNA, LNP-S, PF, 100 mcg/0.5mL dose or 50 mcg/0.25mL dose 06/12/2021 completed Alyson Bruce APRN [address], [place], [address], 10sec 07/30/2024 15:21:47 COVID-19, mRNA, LNP-S, PF, 100 mcg/0.5mL dose or 50 mcg/0.25mL dose 05/13/2021 completed Alyson Bruce APRN [address], [place], [address], 10sec 07/30/2024 15:21:47 Influenza, split virus, quadrivalent, PF 09/23/2021 completed Not Available [facility] 3 02:51:05 Influenza, split virus, quadrivalent, PF 08/04/2022 completed Alyson Bruce APRN [address], [place], [address], 10sec 07/30/2024 15:21:47 Tdap 01/27/2017 completed Not Available [facility] 01/05/2023 02:51:05 Influenza, split virus, quadrivalent, PF 08/21/2015 completed Not Available [facility] 3 02:51:05 Past Encounters Encounter ID Performer Location Encounter Start Date Encounter Closed Date Diagnosis/Indication Diagnosis SNOMED-CT Code Diagnosis ICD10 Code Diagnosis Note [id number] [facility] [place] [facility] [address] [place] [address] 01/26/2021 00:00:00 01/26/2021 14:34:18 [id number] [facility] [place] [address] [place] [address] 02/23/2021 00:00:00 02/24/2021 09:56:49 [id number] [facility] [place] [address] [place] [address] 05/25/2021 00:00:00 05/25/2021 15:07:52 [id number] [facility] [place] [address] [place] [address] 06/25/2021 00:00:00 07/05/2021 21:45:30 [id number] [facility] [place] [address] [place] [address] 09/23/2021 00:00:00 09/28/2021 10:08:45 [id number] [facility] [place] [address] [place] [address] 11/02/2021 00:00:00 11/02/2021 11:32:40 [id number] [facility] [place] [address] [place] [address] 02/01/2022 00:00:00 02/01/2022 11:35:56 [id number] _ATHENA_M IGRATION_ DEFAULT_1 _1 , 03/24/2022 00:00:00 03/24/2022 12:58:24 [id number] [facility] [place] [address] [place] [address] 05/04/2022 00:00:00 05/06/2022 08:42:26 [id number] [facility] [place] [address] [facility] [address] [place] [address] 06/23/2022 00:00:00 07/06/2022 09:54:02 [id number] [facility] [place] [address] [facility] [address] [place] [address] 08/04/2022 00:00:00 08/04/2022 10:57:22 [id number] [facility] Primary Care [place] [address] [place] [address] [address] [place] [address] 12/08/2022 00:00:00 12/08/2022 09:56:33 [id number] Mariluz Alva MD [facility] [place] [address] [place] [address] [address] [place] [address] 03/03/2023 11:00:29 03/03/2023 11:37:03 Bipolar disorder 00455099 F31.9 consider increasing lithium to 900 mg daily pending lab resultspt has done well on this dosage in the past Vitamin D deficiency 347 52982 E55.9 Essential hypertension 35100748 I10 Hypothyroidism 80396366 E03.9 Screening mammography 24 048156 Z12.31 [id number] Mariluz Alva MD [facility] [place] [address] [place] [address] [address] [place] [address] 03/28/2023 09:11:16 03/28/2023 09:34:29 Bipolar disorder 68096157 F31.9 having some mild improvemen t with her increased dosage but was feeling a little paranoid this weekendcop ing well, no si/hileave current dosage and f/u in 4 weeks to review how she is feeling vs any s/e on the current dose Allergy to food 51416366 1 T78.1XXA check food allergen panel [id number] [facility] Primary Care [place] [address] [place] [address] [address] [place], [place] [address] 04/28/2023 11:00:51 04/28/2023 11:27:36 Injury of eye region 420561093 S05.91XA erythemato us conjunctiv a with visible lesion on eye?pteryg iumophtho referral sentreview ed s/s that warrant urgent/vicky rgrey kincaid in meantime Bipolar disorder 7217041 4 F31.9 having some mild improvemen t with her increased dosage but was feeling paranoid and somewhat depressedc oping well, no si/hileave current dosage and f/u in 4 weeks to review how she is feeling vs any s/e on the current dose [id number] Mariluz Alva MD [facility] Primary Care [place] [address] [address] [facility] [address] [place] [address] 06/02/2023 10:52:47 06/02/2023 11:24:14 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 care of ophtho, has rheumatolo gy appt in , ESR, CRP all negativeso me b vitamins elevatedho ld supplement s and repeat labs in 4 weeks [id number] Mariluz Alva MD [facility] Primary Care [address] [place] [address] 08/11/2023 08:03:42 08/11/2023 08:24:44 Low back pain 238193669 M54.50 Bipolar disorder 2481509 4 F31.9 Vitamin D deficiency 347 26789 E55.9 Essential hypertension 01977232 I10 Hypothyroidism 93107760 E03.9 Cobalamin deficiency 190 452641 E53.8 has been off supplement s for a few months Dietary ma nagement surveillance 582879436 Z71.3 restart phentermin eDiscussed healthy diet/exerc iseReviewe d potential med s/e, d/c and be seen if any chest pain, sob [id number] Mariluz Alva MD [facility] Primary Care [facility] [address] [employer] [facility] [address] [place] [address] 09/14/2023 08:01:32 09/14/2023 08:18:36 Low back pain 145090420 M54.50 will get previously ordered xrays Bipolar disorder 2631181 4 F31.9 stable Essential hypertension 85324814 I10 stable Dietary ma nagement surveillance 560630531 Z71.3 doing well, continue phentermin eDiscussed healthy diet/exerc iseReviewe d potential med s/e, d/c and be seen if any chest pain, sob [id number] Alyson Bruce APRN [facility] Internal Med [facility] [address] [facility], [address] [address] 07/31/2024 10:27:50 07/31/2024 11:18:42 Hypothyroidism 64511627 E03.9 Diabetes m ellitus screening 094407233 Z13.1 Hyperlipid emia screening 650432106 Z13.220 Screening for disorder 000878438 Z13.9 Hepatitis C screening 41 1648365 Z11.59 Vitamin D deficiency 347 40203 E55.9 Bipolar disorder 9584141 4 F31.9 Essential hypertension 07671469 I10 Multiple joint pain 3567 8005 M25.50 Spasm 66221797 R25.2 [id number] Alyson Bruce APRN [facility] Internal Med [facility] [address] [facility], [facility] [address] [place] [address] 01/22/2025 10:22:33 01/22/2025 11:09:01 Vitamin D deficiency 53187989 E55.9 Hypothyroidism 62669786 E03.9 Cobalamin deficiency 190 841680 E53.8 Diabetes m ellitus screening 577323074 Z13.1 Hyperlipid emia screening 253194419 Z13.220 Screening for disorder 706953714 Z13.9 Thyroid di sorder screening 792896244 Z13.29 Essential hypertension 47972539 I10 Renewal of prescription 443022503 Z76.0 Bipolar disorder 3059792 4 F31.9 Spasm 20413191 R25.2 Neuralgia 24629120 M79.2 Hepatitis C screening 41 2477440 Z11.59 Health Concerns Section Related Observation LastModified by Organization Detai ls LastModified Time None Recorded Concern Status LastModified by Organization Details LastModified Time None Recorded Advance Directives Directive None Recorded Payers Encounter Date Sequence Insurance Name Policy Number Policy Rabago Covered Member ID Rabago Member ID Guarantor Name 06/02/2023 1 [place] [id number] Jesus Levin [id number] Cary Levin 08/11/2023 1 [place] [id number] Jesus Levin [id number] Cary Levin 09/14/2023 1 [place] [id number] Jesus Levin [id number] Cary Ogs 07/31/2024 1 [place] [id number] Jesus Levin [id number] Cary Ogs 01/22/2025 1 [place] [id number] Jesus Levin [id number] Cary Levin Notes Date Note Type Note Provider Name and Address Organization Details Recorded Time 06/02/2023 text/html here to f/u. She thinks her lithium needs to be increased. She feels anxious but not depressed. Not manic but feels pressured at times. Motivation and interests are down. She is coping with financial and relationship stressors. No si/hi. Has lost weight intentionally update 03/28/23: here to f/u on medication. She is currently on lithium ER 300 mg in AM and 2 po qhs. She did feel a bit paranoid this weekend but attributes it to her stress level and is coping well. Her depression is doing well, she has noticed some improvement in the past week. No si/hi. She has noticed that when she eats eggs she feels very fatigued and had sensation that something was stuck in throat. update 04/28/23: has red eye right side x 2 weeks ago. She was handling cardboard at work and thinks something got into it. It did seem to get red after that and it has gotten progressively worse. She does have chronic dry eyes. No pain but feels like there is something in the corner of her eye. No drainage, no visual disturbance. Her mood is somewhat depressed and she is having some paranoia at night. No si/hi. 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 Labs including ESR, killian, rf, crp all normal. Saw neuro who did panel of b vitamins and found some elevated readings. She has been taking vitamin supplements. Mariluz Alva MD [address] [place] [address], [facility] [address], [place], [address], 10sec 06/05/2023 16:35:46 08/11/2023 text/html here to f/u. She thinks her lithium needs to be increased. She feels anxious but not depressed. Not manic but feels pressured at times. Motivation and interests are down. She is coping with financial and relationship stressors. No si/hi. Has lost weight intentionally update 03/28/23: here to f/u on medication. She is currently on lithium ER 300 mg in AM and 2 po qhs. She did feel a bit paranoid this weekend but attributes it to her stress level and is coping well. Her depression is doing well, she has noticed some improvement in the past week. No si/hi. She has noticed that when she eats eggs she feels very fatigued and had sensation that something was stuck in throat. update 04/28/23: has red eye right side x 2 weeks ago. She was handling cardboard at work and thinks something got into it. It did seem to get red after that and it has gotten progressively worse. She does have chronic dry eyes. No pain but feels like there is something in the corner of her eye. No drainage, no visual disturbance. Her mood is somewhat depressed and she is having some paranoia at night. No si/hi. 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 Labs including ESR, killian, rf, crp all normal. Saw neuro who did panel of b vitamins and found some elevated readings. She has been taking vitamin supplements. update 08/11/23: Having pain in lower back/tailbone, feels like it is a stabbing pain. Rheumatology wants an xray done. Has been off her b vitamin supplements for a few months. Mariluz Alva MD [address] [facility], [facility] [address], [place], [address], 10sec 08/11/2023 08:18:13 09/14/2023 text/html here to f/u. She thinks her lithium needs to be increased. She feels anxious but not depressed. Not manic but feels pressured at times. Motivation and interests are down. She is coping with financial and relationship stressors. No si/hi. Has lost weight intentionally update 03/28/23: here to f/u on medication. She is currently on lithium ER 300 mg in AM and 2 po qhs. She did feel a bit paranoid this weekend but attributes it to her stress level and is coping well. Her depression is doing well, she has noticed some improvement in the past week. No si/hi. She has noticed that when she eats eggs she feels very fatigued and had sensation that something was stuck in throat. update 04/28/23: has red eye right side x 2 weeks ago. She was handling cardboard at work and thinks something got into it. It did seem to get red after that and it has gotten progressively worse. She does have chronic dry eyes. No pain but feels like there is something in the corner of her eye. No drainage, no visual disturbance. Her mood is somewhat depressed and she is having some paranoia at night. No si/hi. 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 Labs including ESR, killian, rf, crp all normal. Saw neuro who did panel of b vitamins and found some elevated readings. She has been taking vitamin supplements. update 08/11/23: Having pain in lower back/tailbone, feels like it is a stabbing pain. Rheumatology wants an xray done. Has been off her b vitamin supplements for a few months. update 09/14/23: No interval change. Has not gotten her xray Mariluz Alva MD [address] [place] [address], [facility] [address], [place], [address], [facility] [employer] 10/02/2023 08:37:31 07/31/2024 text/html Cary present s today to establish care as a new patient. She states that she has been out of blood pressure meds for about 1 month because the previous office would not refill them. 09/14/2023here to f/u. She thinks her lithium needs to be increased. She feels anxious but not depressed. Not manic but feels pressured at times. Motivation and interests are down. She is coping with financial and relationship stressors. No si/hi. Has lost weight intentionally update 03/28/23: here to f/u on medication. She is currently on lithium ER 300 mg in AM and 2 po qhs. She did feel a bit paranoid this weekend but attributes it to her stress level and is coping well. Her depression is doing well, she has noticed some improvement in the past week. No si/hi. She has noticed that when she eats eggs she feels very fatigued and had sensation that something was stuck in throat. update 04/28/23: has red eye right side x 2 weeks ago. She was handling cardboard at work and thinks something got into it. It did seem to get red after that and it has gotten progressively worse. She does have chronic dry eyes. No pain but feels like there is something in the corner of her eye. No drainage, no visual disturbance. Her mood is somewhat depressed and she is having some paranoia at night. No si/hi. 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 Labs including ESR, killian, rf, crp all normal. Saw neuro who did panel of b vitamins and found some elevated readings. She has been taking vitamin supplements. update 08/11/23: Having pain in lower back/tailbone, feels like it is a stabbing pain. Rheumatology wants an xray done. Has been off her b vitamin supplements for a few months. update 09/14/23: No interval change. Has not gotten her xray Alyson Bruce APRN [address], [place], [address], [employer] 07/31/2024 11:16:28 01/22/2025 text/html Cary present s today for 6 month follow up. She states that she cannot take the Diclofenac previously because it interferes with her lithium excretion. She states that her back has been giving her issues and she has gain weight because of it. She works as a nurse in an orthopedic clinic. 07/31/2024Marcialarnel presents today to establish care as a new patient. She states that she has been out of blood pressure meds for about 1 month because the previous office would not refill them. Alyson Bruce APRN [address], [address], [place], [address], [employer] 01/22/2025 11:04:53 OBGyn Episode No OBEpisode recorded.
--- OUTSIDE RECORDS SUMMARY | 2025-01-26 14:30 | XMS_ITS | Clinical Summary ---
Author Organization [facility] Address [address] [place] [address] Care Team Providers Care Machine Cleaner Name Role Phone Mariluz Alva MD Primary Care Provider [phone] Medications Calcium Carbonate Antacid 600 MG Chew Tab Chew 1 tablet by mouth 3 (three) times daily. Active Probiotic Product (PROBIOTIC ADVANCED) Cap Active Vitamin D3 125 mcg Tab Take 1 tablet (125 mcg total) by mouth daily. Active calcium-vitamin D-vitamin K (VIACTIV) 500-500-40 MG-UNT-MCG Chew Tab Chew 1 tablet by mouth daily. Active B Complex-C Tab tablet Take 1 tablet by mouth daily. Active vitamin E 100 UNIT capsule Take 1 capsule (100 Units total) by mouth daily. 180 Active multivitamin with minerals liquid Take 15 mLs by mouth daily. Active lamoTRIgine (LAMICTAL) 150 MG tablet Take 1 tablet (150 mg total) by mouth daily. Active losartan (COZAAR) 100 MG tablet Take 1 tablet (100 mg total) by mouth daily. Active amLODIPine (NORVASC) 5 MG tablet Take 1 tablet (5 mg total) by mouth daily. Active hydroCHLOROthia zide (HYDRODIURIL) 25 MG tablet Take 1 tablet (25 mg total) by mouth every morning. Active meloxicam (MOBIC) 15 MG tablet Take 1 tablet (15 mg total) by mouth daily. Active lithium 300 MG capsule Take 1 capsule (300 mg total) by mouth 3 (three) times daily with meals. Active Latta Carbonate 600 MG Cap Take 1 capsule by mouth 3 (three) times daily. Active levothyroxine (SYNTHROID) 50 MCG tablet Take 1 tablet (50 mcg total) by mouth every morning. Active Active Problems Problem Noted Date Diagnosed Date Vertigo 05/26/2023 Family History Medical History Relation Comments Hypertension Father Lung Disease Mother Thyroid Mother Relation Status Comments Father Mother Social History Tobacco Use Types Packs/Day Years Used Date Smoking Tobacco: Never Smokeless Tobacco: Never Tobacco Cessation:Counseling Given: Not Answered Alcohol Use Standard Drinks/Week Comments Not Currently 0 (1 standard drink = 0.6 oz pur e alcohol) PHQ-2 Answer Date Recorded Patient Health Questionnaire-2 Score 0 05/26/2023 Comments Unknown Sex and Gender Information Value Date Recorded Sex Assigned at Not on file Legal Sex Female 4:47 PM CDT Gender Identity Not on file Sexual Orientation Not on file Last Filed Vital Signs Vital Sign Reading Time Taken Comments Blood Pressure 110/56 05/26/2023 3:24 PM CDT Pulse 73 05/26/2023 3:24 PM CDT Temperature 36.4 C (97.6 F) 05/26/2023 3:24 PM CDT Respiratory Rate - - Oxygen Saturation 100% 05/26/2023 3:24 PM CDT Inhaled Oxygen Concentration - - Weight 87.5 kg (193 lb) 05/26/2023 3:24 PM CDT Height 162.6 cm (5' 4 ) 05/26/2023 3:24 PM CDT Body Mass Index 33.13 05/26/2023 3:24 PM CDT Plan of Treatment Health Maintenance Due Date Last Done Comments Colorectal Cancer Screening Colonoscopy (10 Years) 1976 Annual Physical 1979 Hepatitis C 1994 DTaP, Tdap and Td Vaccines ( 1 - Tdap) 1995 Hepatitis B Vaccines (1 of 3 - 19+ 3-dose series) 1995 Mammogram Screening 2016 PHQ-2 (Physician [place]) 05/26/2024 05/26/2023 COVID-19 Vaccine (1 - 2023-2 5 season) 2024 Influenza Adult (#1) 2024 PHQ-2 (Physician [place]) 11/07/2024 05/26/2023 Meningococcal B Vaccine Aged Out No l onger eligible based on patient's age to complete this topic Meningococcal Vaccine Aged Out No ge fe eligible based on patient's age to complete this topic Pneumococcal Vaccine: Pediat rics (0 to 5 Years) and At-Risk Patients (6 to 64 Years) Aged Out No longer eligi ble based on patient's age to complete this topic RSV Immunizations Under 20 Months Aged Out No longer eligible based on patient's age to complete this topic Insurance [facility] Care Teams Machine Cleaner Relationship Specialty Start Date End Date Mariluz Alva MD [address] [place] [address] [place] [id number] PCP - General FAMILY PRACTICE 05/26/23
--- OUTSIDE RECORDS SUMMARY | 2025-01-26 14:31 | XMS_ITS | Clinical Summary ---
Author Organization [facility] Address [address] [place] [address] Care Team Providers Care Painter Interior Finish Name Role Phone Mariluz Alva MD Primary Care Provider [phone] Source Comments [facility],non-[facility] health Affiliates and Associated Physician Practices is amultiple site organization consisting of ambulatory clinics and hospital sitesin [place], [place], [place] and [place]. This disclosure is being madepursuant to the Care Everywhere program and may not contain all information available regarding this patient. Last updated 18.[facility] Family History Medical History Relation Name Comments Lymphoma Paternal Grandmother Relation Name Status Comments Paternal Grandmother Social History Tobacco Use Types Packs/Day Years Used Date Smoking Tobacco: Never Assessed Sex and Gender Information Value Date Recorded Sex Assigned at Not on file Gender Identity Female 02/28/2024 3:23 PM CDT Sexual Orientation Not on file Last Filed Vital Signs Vital Sign Reading Time Taken Comments Blood Pressure - - Pulse - - Temperature - - Respiratory Rate - - Oxygen Saturation - - Inhaled Oxygen Concentration - - Weight 81.6 kg (180 lb) 02/28/2024 4:04 PM CDT Height 162.6 cm (5' 4 ) 02/28/2024 4:04 PM CDT Body Mass Index 30.9 02/28/2024 4:04 PM CDT Plan of Treatment Health Maintenance Due Date Last Done Comments COLOGUARD (AGES 45-75) - COL ON CA SCREENING 1976 COLON MONITORING 1976 COLONOSCOPY - COLON CA SCREENING 1976 CT COLONOGRAPHY - COLON CA SCREENING 1976 Colorectal Cancer Screening 1976 FIT - COLON CA SCREENING 1976 FLEX SIG - COLON CA SCREENING 1976 LIPID TESTING 1976 PAP SMEAR 1976 HIV SCREENING 1991 HEPATITIS C SCREENING 09/15/1994 DTAP/TDAP/TD VACCINES (1 - Tdap) 1995 HEPATITIS B VACCINE (1 of 3 - 19+ 3-dose series) 1995 COVID-19 VACCINE (1 - 2023-2 5 season) 2024 INFLUENZA VACCINE (#1) 2024 DEPRESSION SCREENING 11/07/2024 MAMMOGRAM 03/26/2026 03/26/2024, 02/28/2024 ZOSTER VACCINE (1 of 2) 2026 HIB VACCINE Aged Out No longer eligi ble based on patient's age to complete this topic HPV VACCINE Aged Out No longer eligi ble based on patient's age to complete this topic MENINGOCOCCAL (Group B) VACCINE SHARED DECISION-MAKING Aged Out No longer eligible based on patient's age to complete this topic MENINGOCOCCAL GROUPS A/C/Y/W VACCINE Aged Out No longer eligible b ased on patient's age to complete this topic PNEUMOCOCCAL VACCINE Aged Out No long er eligible based on patient's age to complete this topic Procedures Procedure Name Priority Date/Time Associated Diagnosis Comments MAMMO BILAT DIAGNOSTIC W GIOVANA Routine 03/26/2024 10:32 AM CDT Abnormal mammogram from Last 3 Months or Most Recently Relevant to Health Maintenance Results * MAMMO BILAT DIAGNOSTIC W GIOVANA (03/26/2024 10:32 AM CDT) Anatomical Region Laterality Modality Breast Bilateral Mammography 03/26/2024 10:0 3 AM CDT Impressions 03/26/2024 11:42 AM CDT : 1. Benign cyst at 8:00 5 cm from the nipple, corresponding to the asymmetry in the central slightly lateral lower right breast in the mammogram. 2. Several subcentimeter benign complicated cysts, some with layering calcifications, corresponding to the regional microcalcifications in upper outer quadrant of left breast in the mammogram. These are benign. RECOMMENDATION: Screening mammography recommended in one year, pending no interval breast concerns. Dr. Lopez discussed the examination findings and recommendations with the patient at the time of the examination. OVERALL ASSESSMENT: BI-RADS CATEGORY 2: BENIGN. > Dictated by Sofia Thomas MD (college president). I, Jennifer Lopez MD have personally reviewed and interpreted this examination/study. > Interpreting Provider: Jennifer Lopez MD on 03/26/2024 11:42 AM Narrative 03/26/2024 11:42 AM CDT EXAMINATIONS: 1. BILATERAL DIGITAL DIAGNOSTIC MAMMOGRAM AND TOMOSYNTHESIS WITH CAD AND 2. LIMITED BILATERAL BREAST ULTRASOUND (COMBINED REPORT) LOCATION: [facility] EXAM DATE: 03/26/2024 HISTORY: Follow-up to an abnormal screening mammogram -possibly asymmetry in the central posterior right breast; regional microcalcifications in the upper-outer quadrant of left breast. History of benign right breast biopsy. No family history of breast cancer. RISK ASSESSMENT CALCULATION: Patient completed a breast cancer risk assessment during her appointment. Based upon the information she provided and her mammographic breast density, her lifetime risk of developing breast cancer is 12 % (Average Risk <15%; Intermediate / Moderate Risk 15-19%; High Risk > 20%). Risk assessment based upon the BRCAPRO model. COMPARISON: Comparison is made to prior mammograms from [facility] dated 02/10/2017, 03/02/2017, 12/22/2018, and from [facility] dated 02/28/2024 MAMMOGRAM: TECHNIQUE: Diagnostic bilateral mammography was performed. Tomosynthesis (3-D) and reconstructed synthetic 2-D images acquired. Images acquired in the right true lateral and craniocaudal projections. Right craniocaudal spot compression tomosynthesis (3D) and C-view (synthetic 2D) views also obtained. Right medial and lateral rolled CC views were also obtained. Left full true lateral, true lateral and craniocaudal spot magnification compression views obtained. A total of 10 images were obtained. Computer-aided detection (CAD) was utilized. BREAST COMPOSITION: Category B: There are scattered areas of fibroglandular density. FINDINGS: Right breast: Biopsy clip in the central lateral right breast. The asymmetry in the central slightly lateral lower breast at posterior depth 8 cm persists on additional views. Ultrasound be performed for further evaluation. Left breast: Regional calcifications in the upper outer quadrant of the left breast spanning 4 cm in extent, 4-5 cm from the nipple on the true lateral view, are round and layering. Ultrasound be performed for further evaluation LIMITED BILATERAL BREAST ULTRASOUND: Scanning performed from the 5 to the 8 o'clock areas in the right breast and from the 12 to the 3 o'clock areas in the left breast. Dr. Thomas and Dr. Lopez also scanned the patient. FINDINGS: . Right breast: At 8:00 5 cm from the nipple at posterior depth, there is a 1.3 x 0.7 x 0.3 cm parallel anechoic mass without internal vascularity, compatible with cluster of cysts corresponding to the asymmetry in the central slightly lateral left breast on the mammogram. Left breast: At 12:00-3:00 region, there are several subcentimeter benign complicated cysts, some of which with layering calcifications, corresponding to the regional calcifications in the concurrent mammogram. For example, there is a subcentimeter circumscribed parallel mass no internal vascularity at 3:00 region 5 cm from nipple, compatible with cluster of cysts. Mariluz Alva MD MAMMO ORDERABLES from Last 3 Months or Most Recently Relevant to Health Maintenance Care Teams Painter Interior Finish Relationship Specialty Start Date End Date Mariluz Alva MD [address] [place] [address] MYLENE Gambino [phone] PCP - General Family Medicine 02/28/24
--- OUTSIDE RECORDS SUMMARY | 2025-01-26 14:31 | XMS_ITS | Referral Summary ---
Author Organization [facility] Address [address] [place] [address] Care Team Providers Care Automotive Artist Name Role Phone Jacob Crane MD Unavailable [phone] Minoo Beaulieu DO Unavailable [phone] Alyson Bruce NP Primary Care Provider [phone] Encounters Date Type Department Care Team Description 12/25/2024 11:44 AM GLASS EDGER - 12/25/2024 11:59 PM GLASS EDGER Hospital Encounter [facility] [address] [place] [id number] Joshua Greenfield MD Spinal stenosis of lumbar region without neurogenic claudication (Primary Dx); Herniated lumbar intervertebral disc; History of spinal fusion Discharge Disposition: Discharge to home or self care 12/10/2024 Orders Only [facility] [address] 1[address] [place] [address] Joshua Calvillo MD Spinal stenosis of lumbar region without neurogenic claudication (Primary Dx); Herniated lumbar intervertebral disc; History of spinal fusion 12/04/2024 Telephone [facility] [address] [facility] [address] [place] [phone] Joshua Calvillo MD 11/27/2024 4:48 PM GLASS EDGER - 11/27/2024 11:59 PM GLASS EDGER Hospital Encounter [facility] [address] [place] [address] [place] [address] Discharge Disposition: Discharge to home or self care 11/21/2024 Orders Only [facility] [address] [facility] 2nd [address] [place] [address] Joshua Calvillo MD Low back pain, unspecified back pain laterality, unspecified chronicity, unspecified whether sciatica present from Last 3 Months Allergies Active Allergy Reactions Criticality Noted Date Comments Fish Derived Hives,Swelling High 08/01/2020 Stomach problems and tongue felt funny Morphine Hives,Itching High 07/02/2020 HR and BP was very low, possibly due to morphine Opioids - Morphine Analogues Itching Reaction: Itching, Shellfish Containing Products Swelling High 07/02/2020 Sulfa (Sulfonamide Antibiotics) Itching Reaction: Itching, Medications bromfenac 0.09 % ophthalmic solution 3 Active hydroCHLOROthia zide (HYDRODIURIL) 25 mg tablet Take 1 tablet (25 mg total) by mouth professor of industrial technology before breakfast Active lamoTRIgine (LaMICtal) 150 mg tablet Take 1 tablet (150 mg total) by mouth daily Active levothyroxine (SYNTHROID) 50 mcg tablet Take 1 tablet (50 mcg total) by mouth professor of industrial technology before breakfast Active lithium ER (LITHOBID) 300 mg CR tablet TAKE 1 TABLET BY MOUTH IN THE MORNING AND 2 EVERY DAY AT BEDTIME Active losartan (COZAAR) 100 mg tablet Take 1 tablet (100 mg total) by mouth daily Active meloxicam (MOBIC) 15 mg tablet Take 1 tablet (15 mg total) by mouth daily Active loteprednol etabonate 0.5 % ointment Apply 1 Application to right eye nightly 3.5 g 11 3 Active mnwxwxrw-btm-pa rrous gluconate (multivitamin with minerals) 0.6 mg iron/mL liquid Take 15 mL by mouth daily Active prednisoLONE sodium phosphate (INFLAMASE FORTE) 1 % ophthalmic solution INSTILL 1 DROP INTO THE RIGHT EYE FOUR TIMES A DAY FOR 10 DAYS, THEN TAPER TO 3 TIMES A DAY FOR 2 DAYS,THEN 2 TIMES A DAY FOR TWO DAYS, THEN ONCE DAILY FOR 3 DAYS 3 Active tiZANidine (ZANAFLEX) 4 mg tablet 2 Active cyclobenzaprine (FLEXERIL) 5 mg tablet TAKE 1 TABLET BY MOUTH THREE TIMES DAILY NEEDED FOR SPASMS Active diclofenac DR (VOLTAREN) 75 mg EC tablet Take 1 tablet (75 mg total) by mouth 2 (two) times a day as needed Active EPINEPHrine (EpiPen 2-David) 0.3 mg/0.3 mL auto-injection syringe inject 0.3 ml sc x 1 prn severe allergic reaction Active estradioL (ESTRACE) 1 mg tablet Take 1 tablet (1 mg total) by mouth daily Active levoFLOXacin (LEVAQUIN) 500 mg tablet Take 1 tablet every 24 hours by oral route for 5 days. Active neomycin-polymy dominga-HC (CORTISPORIN) 3.5-10,000-10 mg-unit-mg/mL ophthalmic suspension INSTILL 1 DROP INTO AFFECTED EYE(S) EVERY 4 HOURS WHILE AWAKE Active gabapentin (NEURONTIN) 100 mg capsule Take 1 capsule (100 mg total) by mouth 3 (three) times a day 90 capsule 1 4 10/25/20 25 Active Active Problems Problem Noted Date Diagnosed Date Low back pain 10/25/2024 Abnormal cervical Papanicolaou smear 10/25/2024 Anxiety 10/25/2024 Autoimmune disease 10/25/2024 Depressive disorder 10/25/2024 Bronchitis 10/25/2024 Carpal tunnel syndrome 10/25/2024 Cellulitis 10/25/2024 Cyst of ovary 10/25/2024 Overview (10/25/2024): complex Fatigue 10/25/2024 Essential hypertension 10/25/2024 Obesity 10/25/2024 Smokes tobacco daily 10/25/2024 Vitamin D deficiency 10/25/2024 Chronic osteoarthritis 10/01/2024 Herniated lumbar intervertebral disc 10/01/2024 Multiple joint pain 10/02/2023 Cough 08/22/2023 Cobalamin deficiency 08/11/2023 Acute upper respiratory infection 07/25/2023 Phlyctenule of right eye 06/30/2023 Assessment & Plan (08/09/2023 8:38 AM CDT): Resolved findings Increased irritation by symptoms x 1d Self-increased PF to q1h 2 days ago when noting symptoms - resolved now Plan: Dec PF q2 x 1wk, q3 x 1wk then QID OD Cont LTX at bedtime (qhs) right eye (OD) Cont tears PRN Return 2-3 weeks Assessment & Plan (07/21/2023 8:34 AM CDT): Resolved findings Increased irritation by symptoms x 1d Increase PF q1 x 2d and then deccrease w/ improved symptoms (RTC prn increase pain / redness) RTC 2-3 wks Tues [phone] Assessment & Plan (06/30/2023 5:48 PM CDT): Plan: PF 7x daily OD LTX kassandra qHS OD RTC 3 weeks Nodular scleritis of left eye 06/16/2023 Overview (06/21/2023): Labs 06/16/23: CRP 0.26mg/dL, ESR 14, RICKIE 22, CBC nl, CCP <16, ANCA negative, MPO <1.0, PR3 <1.0, TB quant negative, CMP nl, HLA-B27 negative, Hepatitis panel negative Assessment & Plan (07/07/2023 9:01 AM CDT): New patient referred from Dr. Black for evaluation of uveitis in the right eye. She first had irritation and discomfort with her right eye 10/2022 and was told she had inflammation by an outside eye doctor which then resolved after starting steroid eye drops. She then saw Dr. Black in February she began having redness on part of her eye and dryness in her right eye (no pain or photophobia). She was started on prednisolone and bromfenac drops which improved her redness and discomfort but then she has since had multiple recurrences since trying to come off of the eye drops. She has hypothyroidism but no other autoimmune diseases. She has had a negative ANCA, MPO, PR3, quantiferon TB test, and HLA-B27. Currently, she has had a pressure-like discomfort for the past few days. She re-started her prednisolone drops 4 times a day and the bromfenac drops 3 times a day in the left eye without improvement. Will refer to [facility] for further evaluation. Assessment & Plan (06/16/2023 3:09 PM CDT): 47-year-old female with PMHx of HTN, bipolar disorder, depression, anxiety, hypothyroidism, s/p lumbar fusion, nodular episcleritis, migraines, and gastric ulcer c/o recurrent right eye uveitis that is not fully resolving the pred forte and bromfenac drops. Has appt with ophthalmology Dr. Kilgore on 06/30. Notes pain in the tailbone improved with activity, worse with rest and is tender over the SI joints on exam today. Will order appropriate serologies and radiographs to further evaluate and rule out an axial spondyloarthropathy, sarcoidosis, or vasculitis associated with uveitis. Follow up in 2 weeks. Sooner if needed. Seen with Dr. Kaba. Injury of eye region 04/28/2023 Pterygium of right eye 04/28/2023 Bipolar disorder 03/03/2023 Hypothyroidism 03/03/2023 Abdominal pain 03/24/2022 Epigastric pain 03/24/2022 COVID-19 11/12/2021 Positive antinuclear antibody 06/17/2014 Pain of multiple extremities 06/17/2014 Social History Tobacco Use Types Packs/Day Years Used Date Smoking Tobacco: Former Cigarettes Q uit: 07/08/2020 Tobacco Cessation:Counseling Given: Not Answered Comments Unknown Sex and Gender Information Value Date Recorded Sex Assigned at Not on file Legal Sex Female 6:44 AM GLASS EDGER Gender Identity Not on file Sexual Orientation Not on file Last Filed Vital Signs Vital Sign Reading Time Taken Comments Blood Pressure 141/79 12/25/2024 1:30 PM GLASS EDGER Pulse 68 12/25/2024 1:30 PM GLASS EDGER Temperature - - Respiratory Rate 16 12/25/2024 1:30 PM GLASS EDGER Oxygen Saturation 99% 06/16/2023 2:09 PM CDT Inhaled Oxygen Concentration - - Weight 86.2 kg (190 lb) 10/25/2024 1:06 PM GLASS EDGER Height 162.6 cm (5' 4 ) 10/25/2024 1:06 PM GLASS EDGER Body Mass Index 32.61 10/25/2024 1:06 PM GLASS EDGER Plan of Treatment Not on file Procedures Procedure Name Priority Date/Time Associated Diagnosis Comments TRANSFORAMINAL EPIDURAL INJECTION LUMBAR SACRAL FIRST LEVEL BILATERAL Schedule Routine, Read Routine (OP Routine) 12/25/2024 1:13 PM GLASS EDGER Spinal stenosis of lumbar region without neurogenic claudication Herniated lumbar intervertebral disc History of spinal fusion NEURO MR OUTSIDE REFERENCE Routine 11/27/2024 4:48 PM GLASS EDGER MRI LUMBAR SPINE WO CONTRAST Schedule Routine, Read Routine (OP Routine) 11/21/2024 7:32 AM GLASS EDGER Low back pain, unspecified back pain laterality, unspecified chronicity, unspecified whether sciatica present HEPATITIS PANEL, ACUTE Routine 06/16/2023 3:24 PM CDT Uveitis of right eye Fatigue, unspecified type from Last 3 Months or Most Recently Relevant to Health Maintenance Results * IR Transforaminal Epidural Injection Lumbar Sacral First Level Bilateral (12/25/2024 1:13 PM GLASS EDGER) Narrative [facility] - 12/25/2024 1:24 PM GLASS EDGER The images from this study are not interpreted by Radiology. Please refer to the physician's procedure / OR operative note. us Joshua Calvillo MD IMG IR PROCEDURES Final Result Performing Organization Address [facility] Co de Phone Number [facility] * Neuro MR Outside Reference (11/27/2024 4:48 PM GLASS EDGER) Impressions [facility] - 11/27/2024 4:48 PM GLASS EDGER These images are for Reference purposes only and have not been reviewed by [facility]. There will be no report generated by a [facility]iologist. Narrative [facility] - 11/27/2024 4:48 PM GLASS EDGER EXAMINATION: Images For Reference Purposes Only Joshua Calvillo MD IMG MRI PROCEDURE S Final Result Performing Organization Address [facility] Co de Phone Number [facility] * MRI Lumbar Spine WO Contrast (11/21/2024 7:32 AM GLASS EDGER) Anatomical Region Laterality Modality Spine N/A Magnetic Resonan ce Joshua Calvillo MD IMG MRI PROCEDURE S Final Result * Hepatitis panel, acute (06/16/2023 3:24 PM CDT) Hep A IgM NON-REACTI VE NON-REACT GLOR[facility] Comment: For additional information, please refer to http://CadenceMD/faq/MDM249 (This link is being provided for informational/ educational purposes only.) HepBsAg NON-REACTI VE NON-REACT GLORIA [facility] Comment: For additional information, please refer to http://CadenceMD/faq/YMV025 (This link is being provided for informational/ educational purposes only.) Hep B core IgM NON-REACTI VE NON-REACT GLORIA [facility] Comment: For additional information, please refer to http://CadenceMD/faq/HAB533 (This link is being provided for informational/ educational purposes only.) Hep C Ab NON-REACTI VE NON-REACT GLORIA [facility] Comment: HCV antibody was non-reactive. There is no laboratory evidence of HCV infection. In most cases, no further action is required. However, if recent HCV exposure is suspected, a test for HCV RNA (test code 07416) is suggested. For additional information please refer to http://CadenceMD/faq/OSA00o8 (This link is being provided for informational/ educational purposes only.) Blood 06/16/2023 3:24 PM CDT 06/16/2023 3:27 PM CDT [facility]CRO[facility] - NERAL ORDERABLES Final Result [facility] [address] [place] [phone] from Last 3 Months or Most Recently Relevant to Health Maintenance Insurance Care Teams Automotive Artist Relationship Specialty Start Date End Date Alyson Bruce NP [address] [facility] [address] [place] [address] PCP - General Family Medicine 10/10/24 Jacob Crane MD [address] [place], [place] [id number] Referring Physician Neurology 05/27/23 Minoo Beaulieu DO [address] [place] [address] Referring Physician Ophthalmology 06/01/23
--- OUTSIDE RECORDS SUMMARY | 2025-01-26 14:31 | XMS_ITS | Clinical Summary ---
Author Organization [facility] Address [address] [place] [address] Care Team Providers Care Matrix Bath Operator Name Role Phone Jacob Crane MD Unavailable [phone] Minoo Beaulieu DO Unavailable [phone] Alyson Bruce NP Primary Care Provider [phone] Allergies Active Allergy Reactions Criticality Noted Date [...] 1 tablet (25 mg total) by mouth trouble lineman before breakfast Active lamoTRIgine (LaMICtal) 150 mg tablet Take 1 tablet (150 mg total) by mouth daily Active levothyroxine (SYNTHROID) 50 mcg tablet Take 1 tablet (50 mcg total) by mouth trouble lineman before breakfast Active lithium ER (LITHOBID) 300 [...] eye nightly 3.5 g 11 3 Active doywcitg-frb-sg rrous gluconate (multivitamin with minerals) 0.6 mg [...] pain / redness) RTC 2-3 wks Tues 715-730 Assessment & Plan (06/30/2023 5:48 PM CDT): [...] antibody 06/17/2014 Pain of multiple extremities 06/17/2014 Encounters Date Type Department Care Team Description 12/25/2024 11:44 AM PACKAGE WORKER - 12/25/2024 11:59 PM PACKAGE WORKER Hospital Encounter [facility] [address] [place] [address] Joshua Greenfield MD Spinal stenosis of lumbar region without neurogenic claudication (Primary Dx); Herniated lumbar intervertebral disc; History of spinal fusion Discharge Disposition: Discharge to home or self care 12/10/2024 Orders Only [facility] [address] [place] [address] Joshua Calvillo MD Spinal stenosis of lumbar region without neurogenic claudication (Primary Dx); Herniated lumbar intervertebral disc; History of spinal fusion 12/04/2024 Telephone [facility] [address] [facility] [address] [place] [id number] Joshua Calvillo MD 11/27/2024 4:48 PM PACKAGE WORKER - 11/27/2024 11:59 PM PACKAGE WORKER Hospital Encounter [facility]) [address] [place] [address] Discharge Disposition: Discharge to home or self care 11/21/2024 Orders Only [facility] Orth[facility] Surgery [address] [facility] 2[address] [place] [id number] Joshua Calvillo MD Low back pain, unspecified back pain laterality, unspecified chronicity, unspecified whether sciatica present from Last 3 Months Surgical History Surgery Date Site/Laterality Comments SINUS SURGERY 11/07/1987 - 11/06/1988 DILATION AND CURETTAGE OF UTERUS 11/07/2008 - 11/06/2009 HYSTERECTOMY 11/07/2009 - 11/06/2010 CARPAL TUNNEL RELEASE w/ ulnar nerve transposition 2014, 2015 LUMBAR FUSION 11/07/2019 - 11/06/2020 s/p L4/L5 fusion w/ decompression COLONOSCOPY 11/07/2021 - 11/06/2022 w/ EGD SPINE SURGERY 08/06/2020 FL UPPER GI AIR CONTRAST W KUB 12/25/2024 Bilateral Medical History Medical History Date Comments Depression Hypertension Thyroid disease Autoimmune disease Family History Medical History Relation Name Comments Diabetes Father NA Hyperlipidemia Father NA Family histor y of hyperlipidemia - (Added by TW Conv) Hypertension Father NA Family history of hypertension - (Added by TW Conv) Glaucoma Maternal Grandfather Glaucoma Maternal Grandmother Arthritis Mother NA Family history of arthritis - (Added by TW Conv) Thyroid disease Mother NA Glaucoma Paternal Grandfather Glaucoma Paternal Grandmother Relation Name Status Comments Father NA Maternal Grandfather Maternal Grandmother Mother NA Paternal Grandfather Paternal Grandmother Social History Tobacco Use Types Packs/Day Years Used Date Smoking Tobacco: Former Cigarettes Q uit: 07/08/2020 Tobacco Cessation:Counseling Given: Not Answered Comments Unknown Sex and Gender Information Value Date Recorded Sex Assigned at Not on file Legal Sex Female 6:44 AM PACKAGE WORKER Gender Identity Not on file Sexual Orientation Not on file Obstetrics History Last Filed Vital Signs Vital Sign Reading Time Taken Comments Blood Pressure 141/79 12/25/2024 1:30 PM PACKAGE WORKER Pulse 68 12/25/2024 1:30 PM PACKAGE WORKER Temperature - - Respiratory Rate 16 12/25/2024 1:30 PM PACKAGE WORKER Oxygen Saturation 99% 06/16/2023 2:09 PM CDT Inhaled Oxygen Concentration - - Weight 86.2 kg (190 lb) 10/25/2024 1:06 PM PACKAGE WORKER Height 162.6 cm (5' 4 ) 10/25/2024 1:06 PM PACKAGE WORKER Body Mass Index 32.61 10/25/2024 1:06 PM PACKAGE WORKER Plan of Treatment Health Maintenance Due Date Last Done Comments Breast Cancer Screening-Mammogram 1976 Colon Cancer Screening-Colonoscopy 1976 Depression Screening 1976 Hepatitis B Screening 1994 Regular Well Visit/Exam 18-64 1994 Covid-19 Vaccine ( season) 2024 06/12/2021, 05/13/2021 Influenza Vaccine (#1) 2024 2, 09/23/2021, 08/21/2015, Additional history exists DTaP/Tdap/Td Vaccine (2 - Td or Tdap) 01/27/2027 01/27/2017 Hepatitis C Screening Completed 06/16/2023 Pneumococcal vaccine <65 Aged Out No longer eligible based on patient's age to complete this topic Procedures Procedure Name Priority Date/Time Associated Diagnosis Comments TRANSFORAMINAL EPIDURAL INJECTION LUMBAR SACRAL FIRST LEVEL BILATERAL Schedule Routine, Read Routine (OP Routine) 12/25/2024 1:13 PM PACKAGE WORKER Spinal stenosis of lumbar region without neurogenic claudication Herniated lumbar intervertebral disc History of spinal fusion NEURO MR OUTSIDE REFERENCE Routine 11/27/2024 4:48 PM PACKAGE WORKER MRI LUMBAR SPINE WO CONTRAST Schedule Routine, Read Routine (OP Routine) 11/21/2024 7:32 AM PACKAGE WORKER Low back pain, unspecified back pain laterality, unspecified chronicity, unspecified whether sciatica present HEPATITIS PANEL, ACUTE Routine 06/16/2023 3:24 PM CDT Uveitis of right eye Fatigue, unspecified type from Last 3 Months or Most Recently Relevant to Health Maintenance Results * IR Transforaminal Epidural Injection Lumbar Sacral First Level Bilateral (12/25/2024 1:13 PM PACKAGE WORKER) Narrative [facility] - 12/25/2024 1:24 PM PACKAGE WORKER The images from this study are not interpreted by Radiology. Please refer to the physician's procedure / OR operative note. Joshua Calvillo MD [facility] IR PROCEDURES Final Result Performing Organization Address [facility] Co de Phone Number [email or web address] * Neuro MR Outside Reference (11/27/2024 4:48 PM PACKAGE WORKER) Impressions [facility] - 11/27/2024 4:48 PM PACKAGE WORKER These images are for Reference purposes only and have not been reviewed by [facility] Radiology. There will be no report generated by a [facility] Radiologist. Narrative [facility] - 11/27/2024 4:48 PM PACKAGE WORKER EXAMINATION: Images For Reference Purposes Only Joshua Calvillo MD [facility] MRI PROCEDURE S Final Result Performing Organization Address [facility] Co de Phone Number [email or web address] * MRI Lumbar Spine WO Contrast (11/21/2024 7:32 AM PACKAGE WORKER) Anatomical Region Laterality Modality Spine N/A Magnetic Resonan ce Joshua Calvillo MD [facility] MRI PROCEDURE S Final Result * Hepatitis panel, acute (06/16/2023 3:24 PM CDT) Hep A IgM NON-REACTI VE NON-REACT GLORIA [facility] Comment: For additional information, please refer to http://Glocal.FidusNet/faq/MLF362 (This link is being provided for informational/ educational purposes only.) HepBsAg NON-REACTI VE NON-REACT GLORIA [facility] Comment: For additional information, please refer to http://TrackR/faq/WHC260 (This link is being provided for informational/ educational purposes only.) Hep B core IgM NON-REACTI VE NON-REACT GLORIA [facility] Comment: For additional information, please refer to http://Glocal.FidusNet/faq/KIE054 (This link is being provided for informational/ educational purposes only.) Hep C Ab NON-REACTI VE NON-REACT GLORIA [facility] Comment: HCV antibody was non-reactive. There is no laboratory evidence of HCV infection. In most cases, no further action is required. However, if recent HCV exposure is suspected, a test for HCV RNA (test code 00197) is suggested. For additional information please refer to http://TrackR/faq/AMZ99o4 (This link is being provided for informational/ educational purposes only.) Blood 06/16/2023 3:24 PM CDT 06/16/2023 3:27 PM CDT Whit [facility]CRO[facility] - NERAL ORDERABLES Final Result [facility] [address] [place], [place] [phone] from Last 3 Months or Most Recently Relevant to Health Maintenance Insurance [facility] [employer] Care Teams Matrix Bath Operator Relationship Specialty Start Date End Date Alyson Bruce NP [address] [facility] [address] [place] [address] PCP - General Family Medicine 10/10/24 Jacob Crane MD [address] [place], [place] [phone] Referring Physician Neurology 05/27/23 Minoo Beaulieu DO [address] [place], [place] [id number] Referring Physician Ophthalmology 06/01/23
--- NOTE | 2025-01-26 14:32 | ECG_ITS ---
Test Date: 2025-01-26 14:40:50 Measurements Intervals [place] Rate: 88 P: 41 ME: 128 QRS: 13 QRSD: 101 T: 38 QT: 375 QTc: 455 Interpretive Statements SINUS RHYTHM No previous ECG available for comparison Electronically Signed On 01-26-2025 17:40:51 CDT by Charlee Alarcon M.D.
[2025-01-26 14:34] VITALS: BP 136/78; PULSE 93; RESP 13; TEMP 36.4; O2SAT 96
[2025-01-26] MEDS: ASPIRIN 81 MG CHEWABLE TABLET 324 MG PO (14:39)
[2025-01-26 14:41] VITALS: O2SAT 99
--- NOTE | 2025-01-26 14:42 | ED_ITS ---
HPI - Chest Pain General Chief Complaint: Chest Pain Stated Complaint: chest pain Time Seen by Provider: 01/26/25 14:31 Source: patient and family Limitations: no limitations History of Present Illness HPI narrative: Patient presents with chest pain. She was cleaning and it came off and it got worse sat down. Described as a pressure across her chest and into left arm and a few fingers. Constant. Recently started a GLP1 compound medication last Tuesday and had experienced indigestion with it, trialed Rolaids. Has had an intermittent cough, uses inhaler.. No edema. If she takes a deep breath it feels like she needs to cough. This has never happened before. Has not seen a mine production engineer. No shortness of breath, nausea, or vomiting. No fevers or chills. No diagnosis GERD or gastritis. PREETI yesterday and then today after symptoms started she had a bite or two of a grilled cheese to see if that would help. Still has her gallbladder. Cardiac risk factors: HTN: + (on 3 antihypertensives) HLD: + (started atorvastatin 3 days ago) Obese: + Personal history NM/CVA/TIA: No Fam Hx in first degree relative: No Smoke: Occasionally vapes low dose nicotine containing products ; quit smoking cigarette 5 years ago Related Data Home Medications ?Medication ?Instructions ?Recorded ?Confirmed ?Last Taken ?Type hydrochlorothiazide 25 mg tablet mg 06/17/22 07/30/24 06/17/22 History levothyroxine 50 mcg tablet mcg 06/17/22 07/30/24 06/17/22 History (Euthyrox) losartan 100 mg tablet mg 06/17/22 07/30/24 06/17/22 History meloxicam 15 mg tablet mg 06/17/22 07/30/24 06/17/22 History lamotrigine 100 mg tablet 150 mg PO 06/18/24 07/30/24 Unknown History lithium carbonate 300 mg mg PO BID 06/18/24 07/30/24 Unknown History tablet,extended release prednisolone acetate 1 % eye drp EACH EYE 06/18/24 07/30/24 Unknown History drops,suspension Allergies Allergy/AdvReac Type Severity Reaction Status Date / Time Sulfa (Sulfonamide Allergy Mild Rash Verified 01/26/25 14:38 Antibiotics) morphine Allergy Unknown Unknown Verified 01/26/25 14:38 SHELLFISH Allergy Mild Unknown Uncoded 01/26/25 14:38 Shrimp Allergy Mild Unknown Uncoded 01/26/25 14:38 [facility] Past Medical History Medical History Obesity (BMI 30-39.9) Hypercholesterolemia with hypertriglyceridemia Ulnar nerve impingement Fusion of lumbar spine Arthritis Diabetes Hypertension Hypothyroid Surgical History Surgical History History of hysterectomy History of carpal tunnel release Family History Family History Mother Family history of elevated blood lipids Father Family history of elevated blood lipids Social History Social History Smoking status: Current every day smoker Additional smoking assessment comments: quit cigarettes ~2019; uses low dose nicotine Alcohol intake: never Substance use: never Do You Feel Safe in your Home?: Yes Lack of Transportation: No Lack of Food: Never True Current Housing: I Have Housing Concerned About Future Housing: No Difficulty Paying Gas/Electric Bills: No Currently Unemployed: No Living arrangements: with family Additional living arrangements comments: spouse Occupation/Education: occupation Gender identity (if verbalized by the patient): Female Exam 2 Narrative: GENERAL: Well-appearing, well-nourished, and in no acute distress. HEAD: Normocephalic, atraumatic. EYES: Non injected, non icteric ENT: Nares clear, no rhinorrhea or epistaxis. NECK: Supple. CHEST: Speaking in full sentences. No respiratory distress. HEART: Regular rate and rhythm. . ABDOMEN: Soft, nondistended. EXTREMITIES: Normal range of motion. No lower extremity edema. SKIN: Warm, dry, no rash. NEURO: No focal deficits. Alert and oriented x3. PSYCH: Normal mood and affect. Course Vital Signs Vital signs: Vital Signs Temperature 97.6 F 01/26/25 14:34 Pulse Rate 93 01/26/25 14:34 Respiratory Rate 13 01/26/25 14:34 Blood Pressure 136/78 01/26/25 14:34 Pulse Oximetry 96 01/26/25 14:34 Oxygen Delivery Room Air 01/26/25 14:34 Temperature 97.6 F 01/26/25 14:34 Pulse Rate 66 01/26/25 17:31 Respiratory Rate 18 01/26/25 17:31 Blood Pressure 101/57 L 01/26/25 17:31 Pulse Oximetry 97 01/26/25 17:31 Oxygen Delivery Room Air 01/26/25 14:41 MDM - Chest Pain MDM Narrative Medical decision making narrative: Patient presents with chest pain. In the emergency department they are afebrile with vital signs within normal limits.. PERC Rule Age greater than or equal to 50: 0 HR greater than or equal to 100: 0 O2 sat room air <95%: 0 Unilateral leg swellin Hemoptysis: 0 Recent surgery or trauma less than 4 wks ago requiring tx with general anesthesia:0 Prior PE or DVT: 0 Hormone use (OCP, HRT or estrogenic hormone use in M/F patients): Yes - estradiol Will obtain dimer. CBC generally unremarkable except for elevated eiosinophils. Calcium corrects to normal (10.0) for albumin level. HEART SCORE History 2 highly suspicious 1 moderately suspicious 0 slightly suspicious History score [address] depression/elevation not due to LBBB, LVH, or digoxin [address] depression but LBBB, LVH, nonspecific repolarization changes 0 normal ECG score 0 Age 2 >/= 65 1 45-64 0 <45 Age score 1 Risk factors (HTN, hypercholesterolemia, DM, obesity with BMI >30, current smoker or cessation </=3mo), positive fam hx with parent or sibling with CVD before age 65, atherosclerotic disease (prior NM, PCI/CABG, CVA/TIA, or peripheral arterial disease) 2 >/= 3 risk factors or history of atherosclerotic dz 1 - 1-2 risk factors 0 no known risk factors Risk factor score 2 (HTN, HLD, obesity, +/- smoking) Initial Troponin 2 >3 times normal limit 1 1-3 times normal limit 0 less than or equal to normal limit Troponin score 0 Total HEART Score 3. D-dimer within normal limits. Will not proceed with CTA imaging. Patient has various other explanations for her chest pain including possibly GI related (lower suspcion for biliary colic today as she took a bite of grilled cheese after symptoms had developed but otherwise had not eaten since yesterday). She recently started a GLP1 medication last week and has been having indigestion as a result. She reports to [facility] at approximately 17:20 that she is still having some chest pain, feels a little fatigued. Nitroglycerin has been ordered but she was borderline hypotensive and did tell the nurse that pain was only a 2/10. Repeat troponin normal. Discussed patient's workup with her and again explained the heart score and the importance of outpatient follow-up since her risk is low but not negligible and has not had a cardiac work up so far. She was also given strict emergency department return precautions verifies understanding. Stable for discharge. Differential Diagnosis Differential diagnosis: Likely stable angina, unstable angina pectoris, atypical chest pain, st elevation myocardial infarction, costochondritis, chest pain, biliary colic and other (pancreatitis; medication side effect; gastritis/GERD) Lab Data Attestation: I reviewed the patient's lab results. 01/26/25 14:39 01/26/25 14:39 Labs: Lab Results 01/26/25 01/26/25 Range/Units 14:39 17:23 WBC 7.5 (4.5-10.0) K/mm3 RBC 4.33 (4.2-5.4) M/mm3 Hgb 14.0 (12.0-15.0) g/dL Hct 40.9 (37.0-47.0) % MCV 94.5 (80-100) fl MCH 32.3 (26-34) pg MCHC 34.2 (32-36) g/dl RDW 12.4 (11.5-14.5) % Plt Count 251 (150-375) k/mm3 MPV 9.2 (7.4-10.4) fl Immature Gran % (Auto) 0.3 (0-0.5) % Neut % (Auto) 53.6 (45.5-73.1) % Lymph % (Auto) 34.2 (18.3-44.2) % [place] % (Auto) 5.7 (2.6-8.5) % Eos % (Auto) 5.3 H (0-4.4) % Baso % (Auto) 0.9 (0.2-1.2) % Lymph # (Auto) 2.57 (0.9-3.2) K/mm3 [place] # (Auto) 0.4 (0.1-0.6) K/mm3 Eos # (Auto) 0.4 H (0-0.3) K/mm3 Baso # (Auto) 0.1 (0.0-0.1) K/mm3 Abs Immat Gran (auto) 0.02 (0.00-0.031) K/mm3 Absolute Neuts (auto) 4.0 (1.3-6.7) K/mm3 Absolute Nucleated RBC 0.000 (0.0-0.012) K/mm3 Nucleated RBC % 0.0 (0.0-0.2) % PT 12.4 (11.1-14.7) Seconds INR 0.9 APTT 23.2 (22.3-36.8) Seconds D-Dimer 0.40 (<0.48) ug/mL Sodium 141 (137-145) mmol/L Potassium 3.5 (3.4-5.0) mmol/L Chloride 102 (98-107) mmol/L Carbon Dioxide 28 (22-30) mmol/L Anion Gap 11 (4-12) mmol/L BUN 14 D (7-17) mg/dL Creatinine 0.90 (0.7-1.0) mg/dL Estim Creat Clear Calc 76 ml/min Estimated GFR > 60 (59 - ) Glucose 95 (65-110) mg/dL Calcium 10.6 H (8.4-10.2) mg/dL Total Bilirubin 0.5 (0.2-1.3) mg/dL AST 32 (14-36) U/L ALT 38 H (6-35) U/L Alkaline Phosphatase 66 (38-126) U/L Troponin I < 0.012 < 0.012 (0.000-0.034) ng/mL Total Protein 8.0 (6.3-8.2) g/dL Albumin 4.8 (3.5-5.1) g/dL Lipase 171 (23-300) U/L Influenza A (RT-PCR) Negative (Negative) Influenza B (RT-PCR) Negative (Negative) RSV (RT-PCR) Negative (Negative) SARS-CoV-2 RNA (RT-PCR) Negative (Negative) Imaging Data Attestation: I personally reviewed and interpreted this imaging study as follows: My impression: Poor lung volume (excursion) on my independent interpretation of chest x-ray Radiologist's impression: Impressions Chest X-Ray 01/26/25 16:53 IMPRESSION: Relatively low lung volumes compared to 06/17/2022 with mild bibasilar atelectasis ECG Data EKG #1: Attestation: I personally reviewed and interpreted this ECG as follows: ECG completion date: 01/26/25 ECG completion time: 14:40 Interpretation: Normal sinus rhythm at a rate of 88 beats per minute. UT interval 128. QRS 101. QT/QTC 375/421. Good R-wave progression across the precordial leads. No T-wave inversions. Normal ECG. EKG #2: Attestation: I personally reviewed and interpreted this ECG as follows: ECG completion date: 01/26/25 ECG completion time: 17:27 Interpretation: Sinus bradycardia at a rate of 48 beats per minute. This is a normal sinus rhythm as P-waves precede QRS complexes in QRS complexes follow P-waves. Good R-wave progression across the precordial leads. No T-wave inversions. Discharge Plan Discharge Clinical Impression: Chest pain, Eosinophilia Patient Disposition: Home, Self-Care Condition: Stable Instructions: Antibiotic Form, Chest Pain (DC) Additional Instructions: Your workup did not identify a cause of your symptoms. You have various reasons why you might have chest pain that might not be related to your heart (e.g. side effect of the GLP1 medication), etc. Like we talked about you are low risk, but not negligible so it is recommended that you follow up outpatient with a mine production engineer for further work up. Your primary care physician to help arrange this or alternatively The name of a mine production engineer is listed below. Return to the emergency department with any new or worsening symptoms. Acetaminophen/Tylenol (maximum 4000 mg per day) is safe to take with NSAIDs (ibuprofen/Motrin) for pain relief. Patient Language: Polish Prescriptions: New ibuprofen 600 mg tablet 600 mg PO TID PRN (Reason: pain) Qty: 30 0RF acetaminophen 500 mg capsule 1,000 mg PO Q6H PRN (Reason: pain) Qty: 30 0RF No Action prednisolone acetate 1 % drops,suspension EACH EYE estradiol 1 mg tablet 1 mg PO DAILY Qty: 90 3RF naproxen 500 mg tablet 500 mg PO BID PRN (Reason: pain) Qty: 20 0RF meloxicam 15 mg tablet levothyroxine [Euthyrox] 50 mcg tablet hydrochlorothiazide 25 mg tablet losartan 100 mg tablet lamotrigine 100 mg tablet 150 mg PO lithium carbonate 300 mg tablet extended release PO BID Follow-up/Referrals: Teo,Alyson Llamas APRN [Primary Care Provider] - Charlee Alarcon MD [Physician] - (Cardiology) Stand Alone Forms: Work/School Release IP Time of Disposition: 18:20
[2025-01-26 14:45] LABS: Hematocrit 40.9 % (37.0-47.0); Mean Corpuscular HGB Conc 34.2 g/dl (32-36); Mean Corpuscular Hemoglobin 32.3 pg (26-34); Mean Corpuscular Volume 94.5 fl (80-100); Platelet Count Result 251 k/mm3 (150-375); Red Blood Count 4.33 M/mm3 (4.2-5.4); Red Cell Distribution Width 12.4 % (11.5-14.5); White Blood Count 7.5 K/mm3 (4.5-10.0)
[2025-01-26 14:46] LABS: Basophils Absolute Auto 0.1 K/mm3 (0.0-0.1); Basophils Percent Auto 0.9 % (0.2-1.2); Eosinophils Absolute Auto 0.4 K/mm3 (0-0.3); Eosinophils Percent Auto 5.3 % (0-4.4); Immature Granulocyte Absolute 0.02 K/mm3 (0.00-0.031); Immature Granulocyte Percent A 0.3 % (0-0.5); Lymphocytes Absolute Auto 2.57 K/mm3 (0.9-3.2); Lymphocytes Percent Auto 34.2 % (18.3-44.2); Mean Platelet Volume 9.2 fl (7.4-10.4); Monocytes Absolute Auto 0.4 K/mm3 (0.1-0.6); Monocytes Percent Auto 5.7 % (2.6-8.5); Neutrophils Percent Auto 53.6 % (45.5-73.1)
--- OUTSIDE RECORDS SUMMARY | 2025-01-26 14:56 | XMS_ITS | Clinical Summary ---
Author Organization [facility] [employer] Address [address] [place] [address] Care Team Providers Care Finisher Cold Rolling Name Role Phone Mariluz Alva MD Primary Care Provider [phone] Source Comments [facility],non-[facility] Affiliates and Associated Physician Practices is amultiple site organization consisting of ambulatory clinics and hospital sitesin [place], [place], [place] and [place]. This disclosure is being madepursuant to the Care Everywhere program and may not contain all information available regarding this patient. Last updated 18.[facility] Family History Medical History Relation Name Comments [...] BENIGN. > Dictated by Sofia Thomas MD (residential real estate assistant). I, Jennifer Lopez MD have personally reviewed and interpreted this examination/study. > Interpreting Provider: Jennifer Lopez MD on 03/26/2024 11:42 AM Narrative 03/26/2024 11:42 AM CDT EXAMINATIONS: 1. BILATERAL DIGITAL DIAGNOSTIC MAMMOGRAM AND TOMOSYNTHESIS WITH CAD AND 2. LIMITED BILATERAL BREAST ULTRASOUND (COMBINED REPORT) LOCATION: [facility] EXAM DATE: 03/26/2024 HISTORY: Follow-up to an [...] Comparison is made to prior mammograms from [facility] dated 02/10/2017, 03/02/2017, 12/22/2018, and from [facility] dated 02/28/2024 MAMMOGRAM: TECHNIQUE: Diagnostic bilateral mammography [...] Recently Relevant to Health Maintenance Care Teams Finisher Cold Rolling Relationship Specialty Start Date End Date aMriluz Alva MD [address] [place] [address] MYLENE Gambino [phone] PCP - General Family Medicine 02/28/24
--- OUTSIDE RECORDS SUMMARY | 2025-01-26 14:56 | XMS_ITS | Referral Summary ---
Author Organization [facility] Address [address] [place] [address] Care Team Providers Care Road Mechanic Name Role Phone Jacob Crane MD Unavailable [phone] Minoo Beaulieu DO Unavailable [phone] Alyson Bruce NP Primary Care Provider [phone] Encounters Date Type Department Care Team Description 12/25/2024 11:44 AM ACCOUNT AUDITOR - 12/25/2024 11:59 PM ACCOUNT AUDITOR Hospital Encounter [facility] [address] [place] [address] Joshua Greenfield MD Spinal stenosis of lumbar region without neurogenic claudication (Primary Dx); Herniated lumbar intervertebral disc; History of spinal fusion Discharge Disposition: Discharge to home or self care 12/10/2024 Orders Only [facility] Orthopaedic Surgery [address] [facility] 1st Floor [address] [place] [address] Joshua Calvillo MD Spinal stenosis of lumbar region without neurogenic claudication (Primary Dx); Herniated lumbar intervertebral disc; History of spinal fusion 12/04/2024 Telephone [facility] Orthopaedic Surgery [address] [facility] Medical Office Building [address] [place] [address] Joshua Calvillo MD 11/27/2024 4:48 PM ACCOUNT AUDITOR - 11/27/2024 11:59 PM ACCOUNT AUDITOR Hospital Encounter [facility]) [address] [place] [address] [place] [address] Discharge Disposition: Discharge to home or self care 11/21/2024 Orders Only [facility] Orthopaedic Surgery [address] [facility] 2nd [address] [place] [address] Joshua Calvillo MD Low back [...] 1 tablet (25 mg total) by mouth environmental health aide before breakfast Active lamoTRIgine (LaMICtal) 150 mg tablet Take 1 tablet (150 mg total) by mouth daily Active levothyroxine (SYNTHROID) 50 mcg tablet Take 1 tablet (50 mcg total) by mouth environmental health aide before breakfast Active lithium ER (LITHOBID) 300 [...] eye nightly 3.5 g 11 3 Active fvadeirr-xip-zu rrous gluconate (multivitamin with minerals) 0.6 mg [...] pain / redness) RTC 2-3 wks Tues [phone] Assessment & Plan (06/30/2023 5:48 PM CDT): [...] on file Legal Sex Female 6:44 AM ACCOUNT AUDITOR Gender Identity Not on file Sexual Orientation Not on file Last Filed Vital Signs Vital Sign Reading Time Taken Comments Blood Pressure 141/79 12/25/2024 1:30 PM ACCOUNT AUDITOR Pulse 68 12/25/2024 1:30 PM ACCOUNT AUDITOR Temperature - - Respiratory Rate 16 12/25/2024 1:30 PM ACCOUNT AUDITOR Oxygen Saturation 99% 06/16/2023 2:09 PM CDT Inhaled Oxygen Concentration - - Weight 86.2 kg (190 lb) 10/25/2024 1:06 PM ACCOUNT AUDITOR Height 162.6 cm (5' 4 ) 10/25/2024 1:06 PM ACCOUNT AUDITOR Body Mass Index 32.61 10/25/2024 1:06 PM ACCOUNT AUDITOR Plan of Treatment Not on file Procedures Procedure Name Priority Date/Time Associated Diagnosis Comments TRANSFORAMINAL EPIDURAL INJECTION LUMBAR SACRAL FIRST LEVEL BILATERAL Schedule Routine, Read Routine (OP Routine) 12/25/2024 1:13 PM ACCOUNT AUDITOR Spinal stenosis of lumbar region without neurogenic claudication Herniated lumbar intervertebral disc History of spinal fusion NEURO MR OUTSIDE REFERENCE Routine 11/27/2024 4:48 PM ACCOUNT AUDITOR MRI LUMBAR SPINE WO CONTRAST Schedule Routine, Read Routine (OP Routine) 11/21/2024 7:32 AM ACCOUNT AUDITOR Low back pain, unspecified back pain laterality, unspecified chronicity, unspecified whether sciatica present HEPATITIS PANEL, ACUTE Routine 06/16/2023 3:24 PM CDT Uveitis of right eye Fatigue, unspecified type from Last 3 Months or Most Recently Relevant to Health Maintenance Results * IR Transforaminal Epidural Injection Lumbar Sacral First Level Bilateral (12/25/2024 1:13 PM ACCOUNT AUDITOR) Narrative [facility] - 12/25/2024 1:24 PM ACCOUNT AUDITOR The images from this study are not interpreted by Radiology. Please refer to the physician's procedure / OR operative note. us Joshua Calvillo MD IMG IR PROCEDURES Final Result Performing Organization Address [facility] Co de Phone Number [facility] * Neuro MR Outside Reference (11/27/2024 4:48 PM ACCOUNT AUDITOR) Impressions [facility] - 11/27/2024 4:48 PM ACCOUNT AUDITOR These images are for Reference purposes only and have not been reviewed by [facility] Radiology. There will be no report generated by a [facility] Radiologist. Narrative [facility] - 11/27/2024 4:48 PM ACCOUNT AUDITOR EXAMINATION: Images For Reference Purposes Only Joshua Calvillo MD IMG MRI PROCEDURE S Final Result Performing Organization Address [facility] Co de Phone Number [facility] * MRI Lumbar Spine WO Contrast (11/21/2024 7:32 AM ACCOUNT AUDITOR) Anatomical Region Laterality Modality Spine N/A Magnetic Resonan ce Joshua Calvillo MD IMG MRI PROCEDURE S Final Result * Hepatitis panel, acute (06/16/2023 3:24 PM CDT) Hep A IgM NON-REACTI VE NON-REACT GL[facility] Comment: For additional information, please refer to http://tuQuejaSuma/faq/FAF869 (This link is being provided for informational/ educational purposes only.) HepBsAg NON-REACTI VE NON-REACT GLORIA [facility] Comment: For additional information, please refer to http://tuQuejaSuma/faq/ZAF071 (This link is being provided for informational/ educational purposes only.) Hep B core IgM NON-REACTI VE NON-REACT GLORIA [facility] Comment: For additional information, please refer to http://tuQuejaSuma/faq/JNO093 (This link is being provided for informational/ educational purposes only.) Hep C Ab NON-REACTI VE NON-REACT GLORIA [facility] Comment: HCV antibody was non-reactive. There is no laboratory evidence of HCV infection. In most cases, no further action is required. However, if recent HCV exposure is suspected, a test for HCV RNA (test code 98738) is suggested. For additional information please refer to http://tuQuejaSuma/faq/DRH65p7 (This link is being provided for informational/ educational purposes only.) Blood 06/16/2023 3:24 PM CDT 06/16/2023 3:27 PM CDT Whit [facility] MICROBIOLOGY - NERAL ORDERABLES Final Result [facility] [address] [place] [address] from Last 3 Months or Most Recently Relevant to Health Maintenance Insurance Care Teams Road Mechanic Relationship Specialty Start Date End Date Alyson Bruce NP [address] [facility] [address] [place] [address] PCP - General Family Medicine 10/10/24 Jacob Crane MD 3 [place], [place] [id number] Referring Physician Neurology 05/27/23 Minoo Beaulieu DO 3 [place] [address] Referring Physician Ophthalmology 06/01/23
--- OUTSIDE RECORDS SUMMARY | 2025-01-26 14:56 | XMS_ITS | Clinical Summary ---
Author Organization [facility] [address] [facility] Address [address] [place] [address] Care Team Providers Care Palletiser Operator Name Role Phone Mariluz Alva MD Primary [...] tablet Take 50 mcg by mouth daily traffic supervisor. Acti ve tiZANidine (ZANAFLEX) 4 mg Tablet [...] (5' 4 ) 09/30/2020 11:3 7 AM VAT HOUSE LABORER Body Mass Index 38.17 09/30/2020 11:37 AM VAT HOUSE LABORER Plan of Treatment Upcoming Encounters Date Type Department Care Team (Late st Contact Info) Description 02/18/2025 2:00 PM CDT Office Visit [facility] Neurosurgery [address] [facility] [address] [facility] [address] [place] [address] Vidal Carranza MD [address] [facility] [address] [place] [phone] Health Maintenance Due Date Last Done Comments [...] 01/27/2027 01/27/2017 Medical Devices Implanted Type Area Facility Specialist Device Identifier Shelf Expiration Date Model / Serial / Lot Rosalio Cdh Solera Ccm [id number] Capped [id number] - Sna Implanted:Qty: 1 on 08/06/2020 by Soy Pierce MD at [facility] Rosalio N/A: Spine Lumbar [employer] SOFAMOR DANEK [id number] / NA / NA Description:load # [id number] date 08/01/2020 Rosalio Cdh Solera Ccm 4.83t54av Capped [id number] - Sna Implanted:Qty: 1 on 08/06/2020 by Soy Pierce MD at [facility] Rosalio N/A: Spine Lumbar [employer] SOFAMOR DANEK [id number] / NA / NA Description:load #[id number] date 08/01/2020 BRODIE-REQ#[id number] Set Screw Solera Perc 4.75mm [id number] - Sna Implanted:Qty: 4 on 08/06/2020 by Soy Pierce MD at [facility] Screw N/A: Spine Lumbar [employer] SOFAMOR DANEK [id number] / NA / NA Description:load # [id number] date 08/01/2020 Screw Solera Kit Ma 6.5x35mm 4.75 Ext Tab [id number] - Sna Implanted:Qty: 2 on 08/06/2020 by Soy Pierce MD at [facility] N/A: Spine Lumbar [employer] SOFAMOR [employer]ANEK [id number] / NA / NA Description:load # [id number] date 08/01/2020 Screw Solera Kit Ma 5.5x40mm 4.75 Ext Tab [id number] - Sna Implanted:Qty: 1 on 08/06/2020 by Soy Pierce MD at [facility] N/A: Spine Lumbar [employer]AMOR [employer]ANEK [id number] / NA / NA Description:load # [id number] date 08/01/2020 Screw Solera Kit Ma 5.5x35mm 4.75 Ext Tab [id number] - Sna Implanted:Qty: 1 on 08/06/2020 by Soy Pierce MD at [facility] N/A: Spine Lumbar [employer]AMOR [employer]ANEK [id number] / NA / NA Description:load # [id number] date 08/01/2020 Spacer Rise 10x26 8-15mm 10 193.122 - Sna Implanted:Qty: 1 on 08/06/2020 by Soy Pierce MD at [facility] Spacer N/A: Spine Lumbar [employer] 193.122 / NA / NA Description:load # [id number] date 08/05/2020 BRODIE-REQ#[id number] Allograft Magnifuse Pc [id number] - [id number] Implanted:Qty: 1 on 08/06/2020 by Soy Pierce MD at [facility] Tissue N/A: Spine Lumbar [employer] 04/22/2022 [id number] / [id number] / NA Description:Requisition: [id number] Explanted Type Area Facility Specialist Device Identifier Shelf Expiration Date Model / Serial / Lot Hemostatic Surgiflo 8ml W/Thrombin 2994 - Sna Explanted:Qty: 2 on 08/06/2020 by Soy Pierce MD at [facility] Hemostatic N/A: Spine Lumbar [employer] 07/07/2021 [id number] / [id number] / [id number] Insurance BCBS BLUE ACCESS/TRUE BLUE PPO [place]ICA[place] RX OPTUM RX Member Subscriber Plan / Payer (Ef fective for All Dates) Name:LevinCary ríos Relation to Subscriber:Self Name:Cary Levin Payer ID:Not on file Group ID:[id number] Type:RX Commercial Address: [address] Advance Directives For more information, please contact: [phone] * Full Code (Latest Code Status on File) Date Activated Date Inactivated Comments 08/06/2020 1:38 PM 08/08/2020 4:36 PM * Full Code Date Activated Date Inactivated Comments 08/06/2020 7:01 AM 08/06/2020 1:37 PM Care Teams Palletiser Operator Relationship Specialty Start Date End Date Mariluz Alva MD [address] [place] [address] [place] [address] PCP - General Family Practice 06/17/20
--- OUTSIDE RECORDS SUMMARY | 2025-01-26 14:56 | XMS_ITS | Clinical Summary ---
Author Organization [facility] Address [address] [place] [address] Care Team Providers Care Moisture Meter Operator Name Role Phone Mariluz Alva MD Primary Care Provider Medications Calcium Carbonate Antacid 600 MG Chew [...] 3 (three) times daily with meals. Active Camino Carbonate 600 MG Cap Take 1 capsule [...] series) 1995 Mammogram Screening 2016 PHQ-2 (Physician [place]) 05/26/2024 05/26/2023 COVID-19 Vaccine (1 - 2023-2 5 season) 2024 Influenza Adult (#1) 2024 PHQ-2 (Physician [place]) 11/07/2024 05/26/2023 Meningococcal B Vaccine Aged Out [...] patient's age to complete this topic Insurance [facility] Care Teams Moisture Meter Operator Relationship Specialty Start Date End Date Mariluz Alva MD [address] [place] [address] [place] [address] PCP - General FAMILY PRACTICE 05/26/23
--- OUTSIDE RECORDS SUMMARY | 2025-01-26 14:56 | XMS_ITS | Clinical Summary ---
Author Organization [facility] Address [address] [place] [address] Care Team Providers Care Energy Trading Analyst Name Role Phone Jacob Crane MD Unavailable [phone] Minoo Beaulieu DO Unavailable [phone] Alyson Bruce NP Primary Care Provider [phone] Allergies Active Allergy Reactions Criticality Noted Date [...] 1 tablet (25 mg total) by mouth scrub technician before breakfast Active lamoTRIgine (LaMICtal) 150 mg tablet Take 1 tablet (150 mg total) by mouth daily Active levothyroxine (SYNTHROID) 50 mcg tablet Take 1 tablet (50 mcg total) by mouth scrub technician before breakfast Active lithium ER (LITHOBID) 300 [...] eye nightly 3.5 g 11 3 Active bkhdzhmi-kvd-bh rrous gluconate (multivitamin with minerals) 0.6 mg [...] Department Care Team Description 12/25/2024 11:44 AM RIGGING SLINGER - 12/25/2024 11:59 PM RIGGING SLINGER Hospital Encounter [facility] [address] [place] [address] Joshua Greenfield MD Spinal stenosis of lumbar region without neurogenic claudication (Primary Dx); Herniated lumbar intervertebral disc; History of spinal fusion Discharge Disposition: Discharge to home or self care 12/10/[address] [facility] Orthopaedic Surgery [address] 1[address] [place] [address] Joshua Calvillo MD Spinal stenosis of lumbar region without neurogenic claudication (Primary Dx); Herniated lumbar intervertebral disc; History of spinal fusion 12/04/[address] [facility] Orthopaedic Surgery [address] [facility] Medical Office Building [address] [place] [address] Joshua Calvillo MD 11/27/2024 4:48 PM RIGGING SLINGER - 11/27/2024 11:59 PM RIGGING SLINGER Hospital Encounter [facility] [address] [place] [address] Discharge Disposition: Discharge to home or self care 11/21/[address] [facility] Orthopaedic Surgery [address] [facility] 2nd Floor [address] [place] [address] Joshua Calvillo MD Low back pain, unspecified [...] on file Legal Sex Female 6:44 AM RIGGING SLINGER Gender Identity Not on file Sexual Orientation Not on file Obstetrics History Last Filed Vital Signs Vital Sign Reading Time Taken Comments Blood Pressure 141/79 12/25/2024 1:30 PM RIGGING SLINGER Pulse 68 12/25/2024 1:30 PM RIGGING SLINGER Temperature - - Respiratory Rate 16 12/25/2024 1:30 PM RIGGING SLINGER Oxygen Saturation 99% 06/16/2023 2:09 PM CDT Inhaled Oxygen Concentration - - Weight 86.2 kg (190 lb) 10/25/2024 1:06 PM RIGGING SLINGER Height 162.6 cm (5' 4 ) 10/25/2024 1:06 PM RIGGING SLINGER Body Mass Index 32.61 10/25/2024 1:06 PM RIGGING SLINGER Plan of Treatment Health Maintenance Due Date [...] Read Routine (OP Routine) 12/25/2024 1:13 PM RIGGING SLINGER Spinal stenosis of lumbar region without neurogenic claudication Herniated lumbar intervertebral disc History of spinal fusion NEURO MR OUTSIDE REFERENCE Routine 11/27/2024 4:48 PM RIGGING SLINGER MRI LUMBAR SPINE WO CONTRAST Schedule Routine, Read Routine (OP Routine) 11/21/2024 7:32 AM RIGGING SLINGER Low back pain, unspecified back pain laterality, unspecified chronicity, unspecified whether sciatica present HEPATITIS PANEL, ACUTE Routine 06/16/2023 3:24 PM CDT Uveitis of right eye Fatigue, unspecified type from Last 3 Months or Most Recently Relevant to Health Maintenance Results * IR Transforaminal Epidural Injection Lumbar Sacral First Level Bilateral (12/25/2024 1:13 PM RIGGING SLINGER) Narrative [facility] - 12/25/2024 1:24 PM RIGGING SLINGER The images from this study are not interpreted by Radiology. Please refer to the physician's procedure / OR operative note. Joshua Calvillo MD [facility] IR PROCEDURES Final Result Performing Organization Address [facility] Co de Phone Number [facility] * Neuro MR Outside Reference (11/27/2024 4:48 PM RIGGING SLINGER) Impressions [facility] - 11/27/2024 4:48 PM RIGGING SLINGER These images are for Reference purposes only and have not been reviewed by [facility] Radiology. There will be no report generated by a [facility] Radiologist. Narrative [facility] - 11/27/2024 4:48 PM RIGGING SLINGER EXAMINATION: Images For Reference Purposes Only Joshua Calvillo MD [facility] MRI PROCEDURE S Final Result Performing Organization Address [facility] Co de Phone Number [facility] * MRI Lumbar Spine WO Contrast (11/21/2024 7:32 AM RIGGING SLINGER) Anatomical Region Laterality Modality Spine N/A Magnetic Resonan ce Joshua Calvillo MD [facility] MRI PROCEDURE S Final Result * Hepatitis panel, acute (06/16/2023 3:24 PM CDT) Hep A IgM NON-REACTI VE NON-REACT [facility] Comment: For additional information, please refer to http://Stampt.TwoChop/faq/HIF766 (This link is being provided for informational/ educational purposes only.) HepBsAg NON-REACTI VE NON-REACT GL[facility] Comment: For additional information, please refer to http://pocketfungames/faq/KAE717 (This link is being provided for informational/ educational purposes only.) Hep B core IgM NON-REACTI VE NON-REACT [facility] Comment: For additional information, please refer to http://Stampt.TwoChop/faq/NNT103 (This link is being provided for informational/ educational purposes only.) Hep C Ab NON-REACTI VE NON-REACT [facility] Comment: HCV antibody was non-reactive. There is no laboratory evidence of HCV infection. In most cases, no further action is required. However, if recent HCV exposure is suspected, a test for HCV RNA (test code 50010) is suggested. For additional information please refer to http://pocketfungames/faq/VQB73r1 (This link is being provided for informational/ educational purposes only.) Blood 06/16/2023 3:24 PM CDT 06/16/2023 3:27 PM CDT Whit [facility] MICROBIOLOGY - NERAL ORDERABLES Final Result [facility] [address] [place], [place] [address] from Last 3 Months or Most Recently Relevant to Health Maintenance Insurance [facility] [employer] [place] Care Teams Energy Trading Analyst Relationship Specialty Start Date End Date Alyson Bruce NP [address] [facility] [address] [place] [address] PCP - General Family Medicine 10/10/24 Jacob Crane MD [address] [place], [place] [id number] Referring Physician Neurology 05/27/23 Minoo Beaulieu DO [address] [place], [place] [phone] Referring Physician Ophthalmology 06/01/23
[2025-01-26 14:58] LABS: Alanine Aminotransferase 38 U/L (6-35); Albumin Level 4.8 g/dL (3.5-5.1); Alkaline Phosphatase 66 U/L (38-126); Anion Gap 11 mmol/L (4-12); Aspartate Amino Transferase 32 U/L (14-36); Bilirubin,Total 0.5 mg/dL (0.2-1.3); Blood Urea Nitrogen 14 mg/dL (7-17); Calcium 10.6 mg/dL (8.4-10.2); Carbon Dioxide 28 mmol/L (22-30); Chloride 102 mmol/L (98-107); Estimated CRCL calculation 76 ml/min; Estimated Glomerular Filt Rate > 60; Glucose 95 mg/dL (65-110); Lipase 171 U/L (23-300); Potassium 3.5 mmol/L (3.4-5.0); Sodium 141 mmol/L (137-145)
[2025-01-26 15:00] LABS: INR 0.9; Prothrombin Time 12.4 Seconds (11.1-14.7)
[2025-01-26] MEDS: BELLADONNA ALK/PHENOB ELIX 10 ML, MAG HYDROX/ALUMINUM HYD/SIMETH 30 ML, LIDOCAINE 2% VI... PO (15:00)
[2025-01-26 15:01] LABS: Partial Thromboplastin Time 23.2 Seconds (22.3-36.8)
[2025-01-26 15:10] LABS: Troponin I < 0.012 ng/mL (0.000-0.034)
[2025-01-26 15:22] LABS: Influenza A QL RT-PCR Negative (Negative); Influenza B QL RT-PCR Negative (Negative); RSV RNA, RT-PCR Negative (Negative); SARS-CoV-2 RNA PCR Negative (Negative)
[2025-01-26 16:00] VITALS: BP 100/52; PULSE 74; RESP 16; O2SAT 94
--- NOTE | 2025-01-26 17:19 | ECG_ITS ---
Test Date: 2025-01-26 17:27:08 Measurements Intervals [place] Rate: 48 P: 38 CO: 158 QRS: 6 QRSD: 100 T: 23 QT: 405 QTc: 362 Interpretive Statements SINUS BRADYCARDIA MINIMAL VOLTAGE CRITERIA FOR LVH, CONSIDER NORMAL VARIANT [MEETS CRITERIA IN ONE OF: R(aVL), S(V1), R(V5), R(V5/V6)+S(V1)] Compared to ECG 01/26/2025 14:40:50 Sinus rhythm no longer present Electronically Signed On 01-26-2025 17:44:32 CDT by Charlee Alarcon M.D.
[2025-01-26 17:31] VITALS: BP 101/57; PULSE 66; RESP 18; O2SAT 97
[2025-01-26 18:06] LABS: Troponin I < 0.012 ng/mL (0.000-0.034)
== END 2025-01-26 18:46 | disposition home or self-care (01) ==
PROVIDERS: Emergency Provider Student in an Organized Health Care Education/Training Program; PCP Nurse Practitioner Family
DX: R07.9 Chest pain, unspecified (principal); D72.10 Eosinophilia, unspecified; Z20.822 Contact with and (suspected) exposure to COVID-19; I10 Essential (primary) hypertension; E78.00 Pure hypercholesterolemia, unspecified; E78.1 Pure hyperglyceridemia; E11.9 Type 2 diabetes mellitus without complications; E03.9 Hypothyroidism, unspecified; E66.9 Obesity, unspecified; Z68.37 Body mass index [BMI] 37.0-37.9, adult; M19.90 Unspecified osteoarthritis, unspecified site; F17.290 Nicotine dependence, other tobacco product, uncomplicated; Z90.710 Acquired absence of both cervix and uterus; R00.1 Bradycardia, unspecified; Z79.899 Other long term (current) drug therapy
CPT/HCPCS: 36415; 71046; 80053; 83690; 84484; 85025; 85380; 85610; 85730; 87637; 93005; 99284; A9270